=== PATIENT | male | born 1985 | race Caucasian/White ===

== ENCOUNTER 2020-01-07 23:40 | Emergency (ER) | payer OTHER ==
[2020-01-08] MEDS ORDERED: TRANEXAMIC ACID 1,000 MG in SODIUM CHLORIDE 0.9% 100 ML IVPB ONE (00:12)
[2020-01-08] MEDS ORDERED: PHENYLEPHRINE 0.25% NASAL SPRA 1 SPRAY/ML NASAL STA (00:16)
[2020-01-08] MEDS ORDERED: LIDOCAINE 1%-EPI 1:100,000 20 ML VIAL SQ STA (00:16)
[2020-01-08] MEDS ORDERED: OXYMETAZOLINE 0.05% NASL SPRAY 1 SPRAY BOTTLE NASAL STA (00:16)
[2020-01-08 00:30] LABS: Basophils # (A) 0.1 k/uL (0-0.2); Basophils % (A) 1 %; Eosinophils # (A) 0.2 k/uL (0-0.7); Eosinophils % (A) 3 %; HCT 44.4 % (39.0-53.0); HGB 15.5 gm/dL (13.0-17.5); Lymphocytes # (A) 2.2 k/uL (1.0-4.8); Lymphocytes % (A) 30 %; MCH 30.5 pg (25.0-35.0); MCHC 34.8 g/dL (31.0-37.0); MCV 87.6 fL (80.0-100.0); Mean Platelet Volume 7.3; Monocytes # (A) 0.3 k/uL (0-1.0); Monocytes % (A) 5 %; Neutrophils # (A) 4.4 k/uL (1.3-7.7); Neutrophils % (A) 59 %; Platelet Count 334 k/uL (150-450); RBC 5.07 m/uL (4.30-5.90); RDW 12.7 % (11.5-15.5); WBC 7.4 k/uL (3.8-10.6)
[2020-01-08 00:39] LABS: ALT 28 U/L (4-49); AST 31 U/L (17-59); African American GFR (CKD) >90 (>60 ml/min/1.73 sqM); Albumin 4.7 g/dL (3.5-5.0); Alkaline Phosphatase 76 U/L (38-126); Anion Gap 9 mmol/L; Blood Urea Nitrogen 19 mg/dL (9-20); Calcium 9.3 mg/dL (8.4-10.2); Carbon Dioxide 24 mmol/L (22-30); Chloride 107 mmol/L (98-107); Glucose 101 mg/dL (74-99); Non-African American GFR(CKD) >90 (>60 ml/min/1.73 sqM); Partial Thromboplastin Time 25.6 sec (22.0-30.0); Potassium 4.5 mmol/L (3.5-5.1); Sodium 140 mmol/L (137-145); Total Bilirubin 0.6 mg/dL (0.2-1.3); Total Protein 7.1 g/dL (6.3-8.2)
--- NOTE | 2020-01-08 01:20 | ED ---
General Adult HPI - General Chief complaint: ENT Stated complaint: Nose Bleed Time Seen by Provider: 01/07/20 23:45 Source: patient, RN notes reviewed, old records reviewed Mode of arrival: ambulatory Limitations: no limitations - History of Present Illness Initial comments: 34-year-old male patient who has a history of a septoplasty about 6 weeks ago presents to ED for chief complaint of epistaxis. Patient reports that he blew his nose today and started bleeding. He reports the most the bleeding was from the right side where he has had had some bleeding from the left. Denies any other acute complaints. Systemic: Pt denies fatigue, fever/chills, rash. Pt denies weakness, night sweats, weight loss. Neuro: Pt denies headache, visual disturbances, syncope or pre-syncope. HEENT: Pt denies ocular discharge or irritation, otalgia, rhinorrhea, pharyngitis or notable lymphadenopathy. Cardiopulmonary: Pt denies chest pain, SOB, heart palpitations, dyspnea on exertion. Abdominal/GI: Pt denies abdominal pain, n/v/d. : Pt denies dysuria, burning w/ urination, frequency/urgency. Denies new onset urinary or bowel incontinence. MSK: Pt denies myalgia, loss of strength or function in extremities. Neuro: Pt denies new onset weakness, paresthesias. - Related Data Allergies Allergy/AdvReac Type Severity Reaction Status Date / Time No Known Allergies Allergy Verified 01/07/20 23:51 Review of Systems ROS Statement: Those systems with pertinent positive or pertinent negative responses have been documented in the HPI. ROS Other: All systems not noted in ROS Statement are negative. Past Medical History Past Medical History: No Reported History History of Any Multi-Drug Resistant Organisms: None Reported Additional Past Surgical History / Comment(s): septoplasty. Past Psychological History: No Psychological Hx Reported Smoking Status: Never smoker Past Alcohol Use History: None Reported Past Drug Use History: None Reported General Exam - General Exam Comments Initial Comments: Constitutional: NAD, AOX3, Pt has pleasant affect. HEENT: NC/AT, trachea midline, neck supple, no lymphadenopathy. External ears appear normal, without discharge. Mucous membranes moist. Eyes PERRLA, EOM intact. There is no scleral icterus. No pallor noted. Dried blood noted in bilateral nares. Cardiopulmonary: RRR, no murmurs, rubs or gallops, no JVD noted. Lungs CTAB in anterior and posterior arceo. No peripheral edema. Neuro: CN II-XII grossly intact. No nuchal rigidity. No raccon eyes, no fernández sign, no hemotympanum. No cervical spinal tenderness. MSK: Full active ROM in upper and lower extremities. Limitations: no limitations Course Vital Signs 01/07/20 01/08/20 01/08/20 23:45 01:00 02:12 Temperature 98 F 97.9 F Pulse Rate 91 75 86 Respiratory 18 16 18 Rate Blood Pressure 159/100 137/74 125/73 O2 Sat by Pulse 96 95 96 Oximetry Medical Decision Making - Medical Decision Making 34-year-old male patient presented to ED for evaluation of epistaxis. Patient did have a nasal surgery about 6 weeks ago. Denies any other complaints. Vital signs stable. Laboratory investigations were obtained. Hemoglobin stable at 15. A was administered he aches a bleeding stopped spontaneously. I did offer patient packing however he is wants to decline this did not damaged his nose after the surgery.. Patient to follow-up with his surgeon tomorrow and return to ER if condition worsens. Case discussed with Dr. Velásquez. - Lab Data Result diagrams: 01/08/20 00:20 01/08/20 00:20 Lab Results 01/08/20 01/08/20 01/08/20 Range/Units 00:12 00:17 00:20 WBC 7.4 (3.8-10.6) k/uL RBC 5.07 (4.30-5.90) m/uL Hgb 15.5 (13.0-17.5) gm/dL Hct 44.4 (39.0-53.0) % MCV 87.6 (80.0-100.0) fL MCH 30.5 (25.0-35.0) pg MCHC 34.8 (31.0-37.0) g/dL RDW 12.7 (11.5-15.5) % Plt Count 334 (150-450) k/uL Neutrophils % 59 % Lymphocytes % 30 % Monocytes % 5 % Eosinophils % 3 % Basophils % 1 % Neutrophils # 4.4 (1.3-7.7) k/uL Lymphocytes # 2.2 (1.0-4.8) k/uL Monocytes # 0.3 (0-1.0) k/uL Eosinophils # 0.2 (0-0.7) k/uL Basophils # 0.1 (0-0.2) k/uL PT (9.0-12.0) sec INR (<1.2) APTT (22.0-30.0) sec Sodium (137-145) mmol/L Potassium (3.5-5.1) mmol/L Chloride (98-107) mmol/L Carbon Dioxide (22-30) mmol/L Anion Gap mmol/L BUN (9-20) mg/dL Creatinine (0.66-1.25) mg/dL Est GFR (CKD-EPI)AfAm (>60 ml/min/1.73 sqM) Est GFR (CKD-EPI)NonAf (>60 ml/min/1.73 sqM) Glucose (74-99) mg/dL Calcium (8.4-10.2) mg/dL Total Bilirubin (0.2-1.3) mg/dL AST (17-59) U/L ALT (4-49) U/L Alkaline Phosphatase (38-126) U/L Total Protein (6.3-8.2) g/dL Albumin (3.5-5.0) g/dL Blood Type O Positive Blood Type Confirm O Positive Blood Type Recheck No Previous Record Bld Type Recheck Status CABO Indicated Antibody Screen NEGATIVE Spec Expiration Date 01/11/2020 - 231101/08/20 01/08/20 Range/Units 00:20 00:20 WBC (3.8-10.6) k/uL RBC (4.30-5.90) m/uL Hgb (13.0-17.5) gm/dL Hct (39.0-53.0) % MCV (80.0-100.0) fL MCH (25.0-35.0) pg MCHC (31.0-37.0) g/dL RDW (11.5-15.5) % Plt Count (150-450) k/uL Neutrophils % % Lymphocytes % % Monocytes % % Eosinophils % % Basophils % % Neutrophils # (1.3-7.7) k/uL Lymphocytes # (1.0-4.8) k/uL Monocytes # (0-1.0) k/uL Eosinophils # (0-0.7) k/uL Basophils # (0-0.2) k/uL PT 10.0 (9.0-12.0) sec INR 1.0 (<1.2) APTT 25.6 (22.0-30.0) sec Sodium 140 (137-145) mmol/L Potassium 4.5 (3.5-5.1) mmol/L Chloride 107 (98-107) mmol/L Carbon Dioxide 24 (22-30) mmol/L Anion Gap 9 mmol/L BUN 19 (9-20) mg/dL Creatinine 0.99 (0.66-1.25) mg/dL Est GFR (CKD-EPI)AfAm >90 (>60 ml/min/1.73 sqM) Est GFR (CKD-EPI)NonAf >90 (>60 ml/min/1.73 sqM) Glucose 101 H (74-99) mg/dL Calcium 9.3 (8.4-10.2) mg/dL Total Bilirubin 0.6 (0.2-1.3) mg/dL AST 31 (17-59) U/L ALT 28 (4-49) U/L Alkaline Phosphatase 76 (38-126) U/L Total Protein 7.1 (6.3-8.2) g/dL Albumin 4.7 (3.5-5.0) g/dL Blood Type Blood Type Confirm Blood Type Recheck Bld Type Recheck Status Antibody Screen Spec Expiration Date Disposition Clinical Impression: Epistaxis Disposition: HOME SELF-CARE Condition: Stable Instructions (If sedation given, give patient instructions): Nosebleed (ED) Additional Instructions: Follow-up with primary care provider and surgeon tomorrow. Return to ER if any worsening symptoms. Is patient prescribed a controlled substance at d/c from ED?: No Referrals: None,Stated [Primary Care Provider] - 1-2 days Brayden White [STAFF PHYSICIAN] - 1-2 days
[2020-01-08 02:19] VITALS: BP 125/73; PULSE 86; RESP 18; TEMP 97.9
== END 2020-01-08 02:23 | disposition home or self-care (01) ==
LOC: EC 23:40
DX: R04.0 Epistaxis (principal); Z53.29 Procedure and treatment not carried out because of patient's decision for other reasons
CPT/HCPCS: 36415; 80053; 85025; 85610; 85730; 86850; 86900; 86901; 96365; 99284

== ENCOUNTER 2020-04-28 16:13 | Emergency (ER) | payer OTHER ==
[2020-04-28 16:25] VITALS: RESP 18; TEMP 98.5
[2020-04-28] MEDS ORDERED: KETOROLAC 15 MG/ML 1 ML VIAL IVP STA (16:39)
[2020-04-28] MEDS ORDERED: PANTOPRAZOLE 40 MG/10 ML VIAL IVP STA (16:39)
[2020-04-28] MEDS ORDERED: SODIUM CHLORIDE 0.9% 1,000 ML IV STA (16:39)
[2020-04-28] MEDS ORDERED: ONDANSETRON 4 MG/2 ML VIAL IVP STA (16:39)
--- NOTE | 2020-04-28 16:59 | ED ---
Abdominal Pain HPI - General Chief Complaint: Abdominal Pain Stated Complaint: Abd Pain Time Seen by Provider: 04/28/20 16:27 Source: patient Mode of arrival: ambulatory Limitations: no limitations - History of Present Illness Initial Comments: Patient is a 34-year-old male presenting to the emergency Department with complaints of abdominal pain times one day. Patient states for the last few days he has been having a nausea/burning sensation of his epigastric area with very mild radiation up into his lower chest. He states he has been nauseous, no vomiting though, no diarrhea. Patient states starting today he started having pain in his epigastric area and did notice a slight bulge and was worried he had a hernia and decided to come into the ER. He denies history of any abdominal surgeries. He states he's had no fever or chills, no diarrhea. He states his bowel movements have been regular. He denies any urinary complaints. He states his pain at rest is approximately 4/10 however when he moves around or when some he presses on his stomach that shoots up to a 7 out of 10. Patient denies taking any medications. Patient has no further complaints at this time. Upon arrival to the ER his vital signs are stable. - Related Data Allergies Allergy/AdvReac Type Severity Reaction Status Date / Time No Known Allergies Allergy Verified 04/28/20 16:24 Review of Systems ROS Statement: Those systems with pertinent positive or pertinent negative responses have been documented in the HPI. ROS Other: All systems not noted in ROS Statement are negative. Past Medical History Past Medical History: No Reported History History of Any Multi-Drug Resistant Organisms: None Reported Past Surgical History: No Surgical Hx Reported Additional Past Surgical History / Comment(s): septoplasty. Past Psychological History: No Psychological Hx Reported Smoking Status: Never smoker Past Alcohol Use History: None Reported Past Drug Use History: None Reported General Exam - General Exam Comments Initial Comments: GENERAL: Patient is well-developed and well-nourished. Patient is nontoxic and in no acute distress. HEAD: Atraumatic, normocephalic. EYES: Pupils equal round and reactive to light, extraocular movements intact, sclera anicteric, conjunctiva are normal. Eyelids were unremarkable. ENT: TMs normal, nares patent, oropharynx clear without exudates. Moist mucous membranes. NECK: Normal range of motion, supple without lymphadenopathy or JVD. LUNGS: Unlabored respirations. Breath sounds clear to auscultation bilaterally and equal. No wheezes rales or rhonchi. HEART: Regular rate and rhythm without murmurs, rubs or gallops. ABDOMEN: Tender to palpation epigastric, right upper quadrant. Patient has a slight buldge just left of the epigastric region. This buldge does seem to be tender, it is soft. Soft, normoactive bowel sounds. No guarding, no rebound. No masses appreciated. : Deferred MUSCULOSKELETAL: Normal extremities with adequate strength and normal range of motion, no pitting or edema. No clubbing or cyanosis. NEUROLOGICAL: Patient is alert and oriented x 3. Motor and sensory are also intact. Cranial nerves II through XII grossly intact. Symmetrical smile. Normal speech, normal gait. PSYCH: Normal mood, normal affect. SKIN: Warm, Dry, normal turgor, no rashes or lesions noted. Limitations: no limitations Course Vital Signs 04/28/20 04/28/20 16:21 17:58 Temperature 98.5 F Pulse Rate 88 76 Respiratory 18 18 Rate Blood Pressure 150/75 118/76 O2 Sat by Pulse 97 100 Oximetry Medical Decision Making - Medical Decision Making Patient is a 34-year-old male here for epigastric pain times one day along with nausea for the past 3 days. His vitals are stable he is afebrile. He does have pain epigastric and right upper quadrant along with a soft buldge just just left of the epigastric area. Labs show normal white count, coags are normal, lipase is normal, no acute findings and the labs, urine shows no evidence of infection. CT of the abdomen and pelvis is normal except for a small epigastric ventral hernia containing a small amount of fat. Patient was given some fluids and Toradol and has been resting completely ER. I discussed these findings with the patient. Patient will be given referral to a surgeon. Patient is stable for discharge. Return parameters were discussed with the patient and he verbalized understanding. Case discussed with Dr. Calhoun. - Lab Data Result diagrams: 04/28/20 16:48 04/28/20 16:48 Lab Results 04/28/20 04/28/20 04/28/20 Range/Units 16:48 16:48 16:48 WBC 7.4 (3.8-10.6) k/uL RBC 5.59 (4.30-5.90) m/uL Hgb 16.8 (13.0-17.5) gm/dL Hct 48.4 (39.0-53.0) % MCV 86.6 (80.0-100.0) fL MCH 30.0 (25.0-35.0) pg MCHC 34.7 (31.0-37.0) g/dL RDW 12.8 (11.5-15.5) % Plt Count 287 (150-450) k/uL MPV 7.2 Neutrophils % 66 % Lymphocytes % 24 % Monocytes % 4 % Eosinophils % 2 % Basophils % 2 % Neutrophils # 4.8 (1.3-7.7) k/uL Lymphocytes # 1.8 (1.0-4.8) k/uL Monocytes # 0.3 (0-1.0) k/uL Eosinophils # 0.2 (0-0.7) k/uL Basophils # 0.1 (0-0.2) k/uL PT 10.2 (9.0-12.0) sec INR 1.0 (<1.2) APTT 25.3 (22.0-30.0) sec Sodium (137-145) mmol/L Potassium (3.5-5.1) mmol/L Chloride (98-107) mmol/L Carbon Dioxide (22-30) mmol/L Anion Gap mmol/L BUN (9-20) mg/dL Creatinine (0.66-1.25) mg/dL Est GFR (CKD-EPI)AfAm (>60 ml/min/1.73 sqM) Est GFR (CKD-EPI)NonAf (>60 ml/min/1.73 sqM) Glucose (74-99) mg/dL Plasma Lactic Acid [place] (0.7-2.0) mmol/L Calcium (8.4-10.2) mg/dL Total Bilirubin (0.2-1.3) mg/dL AST (17-59) U/L ALT (4-49) U/L Alkaline Phosphatase (38-126) U/L Total Protein (6.3-8.2) g/dL Albumin (3.5-5.0) g/dL Amylase (30-110) U/L Lipase (23-300) U/L Urine Color Yellow Urine Appearance Clear (Clear) Urine pH 6.5 (5.0-8.0) Ur Specific [place] 1.018 (1.001-1.035) Urine Protein Negative (Negative) Urine Glucose (UA) Negative (Negative) Urine Ketones Negative (Negative) Urine Blood Negative (Negative) Urine Nitrite Negative (Negative) Urine Bilirubin Negative (Negative) Urine Urobilinogen <2.0 (<2.0) mg/dL Ur Leukocyte Esterase Negative (Negative) 04/28/20 04/28/20 Range/Units 16:48 16:48 WBC (3.8-10.6) k/uL RBC (4.30-5.90) m/uL Hgb (13.0-17.5) gm/dL Hct (39.0-53.0) % MCV (80.0-100.0) fL MCH (25.0-35.0) pg MCHC (31.0-37.0) g/dL RDW (11.5-15.5) % Plt Count (150-450) k/uL MPV Neutrophils % % Lymphocytes % % Monocytes % % Eosinophils % % Basophils % % Neutrophils # (1.3-7.7) k/uL Lymphocytes # (1.0-4.8) k/uL Monocytes # (0-1.0) k/uL Eosinophils # (0-0.7) k/uL Basophils # (0-0.2) k/uL PT (9.0-12.0) sec INR (<1.2) APTT (22.0-30.0) sec Sodium 138 (137-145) mmol/L Potassium 4.0 (3.5-5.1) mmol/L Chloride 104 (98-107) mmol/L Carbon Dioxide 30 (22-30) mmol/L Anion Gap 4 mmol/L BUN 14 (9-20) mg/dL Creatinine 0.89 (0.66-1.25) mg/dL Est GFR (CKD-EPI)AfAm >90 (>60 ml/min/1.73 sqM) Est GFR (CKD-EPI)NonAf >90 (>60 ml/min/1.73 sqM) Glucose 102 H (74-99) mg/dL Plasma Lactic Acid [place] 1.1 (0.7-2.0) mmol/L Calcium 9.2 (8.4-10.2) mg/dL Total Bilirubin 0.8 (0.2-1.3) mg/dL AST 38 (17-59) U/L ALT 40 (4-49) U/L Alkaline Phosphatase 60 (38-126) U/L Total Protein 6.7 (6.3-8.2) g/dL Albumin 4.2 (3.5-5.0) g/dL Amylase 50 (30-110) U/L Lipase 76 (23-300) U/L Urine Color Urine Appearance (Clear) Urine pH (5.0-8.0) Ur Specific [place] (1.001-1.035) Urine Protein (Negative) Urine Glucose (UA) (Negative) Urine Ketones (Negative) Urine Blood (Negative) Urine Nitrite (Negative) Urine Bilirubin (Negative) Urine Urobilinogen (<2.0) mg/dL Ur Leukocyte Esterase (Negative) Disposition Clinical Impression: Abdominal pain, Hernia, epigastric Disposition: HOME SELF-CARE Condition: Stable Instructions (If sedation given, give patient instructions): Abdominal Pain (ED) Additional Instructions: Please return to the Emergency Department if symptoms worsen or any other concerns. Lab work today was normal, CT scan of your abdomen shows a small ventral hernia. Recommend following up with general surgery. May take Tylenol or Motrin for discomfort, apply pressure to the area while having a bowel movement, limit heavy lifting. Is patient prescribed a controlled substance at d/c from ED?: No Referrals: None,Stated [Primary Care Provider] - 1-2 days Amado Cowan MD [STAFF PHYSICIAN] - 1-2 days
[2020-04-28 17:06] LABS: Basophils # (A) 0.1 k/uL (0-0.2); Basophils % (A) 2 %; Eosinophils # (A) 0.2 k/uL (0-0.7); Eosinophils % (A) 2 %; HCT 48.4 % (39.0-53.0); HGB 16.8 gm/dL (13.0-17.5); Lymphocytes # (A) 1.8 k/uL (1.0-4.8); Lymphocytes % (A) 24 %; MCHC 34.7 g/dL (31.0-37.0); MCV 86.6 fL (80.0-100.0); Mean Platelet Volume 7.2; Monocytes # (A) 0.3 k/uL (0-1.0); Monocytes % (A) 4 %; Neutrophils # (A) 4.8 k/uL (1.3-7.7); Neutrophils % (A) 66 %; Platelet Count 287 k/uL (150-450); RBC 5.59 m/uL (4.30-5.90); RDW 12.8 % (11.5-15.5); WBC 7.4 k/uL (3.8-10.6)
[2020-04-28 17:08] LABS: Appearance,Urine Clear (Clear); Bilirubin,Urine Negative (Negative); Blood,Urine Negative (Negative); Color,Urine Yellow; Glucose,Urine (UA) Negative (Negative); Ketones,Urine Negative (Negative); Leukocyte Esterase,Urine Negative (Negative); Nitrite,Urine Negative (Negative); PH, Urine 6.5 (5.0-8.0); Protein,Urine Negative (Negative); Specific Gravity,Urine 1.018 (1.001-1.035); Urobilinogen,Urine <2.0 mg/dL (<2.0)
[2020-04-28 17:21] LABS: ALT 40 U/L (4-49); AST 38 U/L (17-59); African American GFR (CKD) >90 (>60 ml/min/1.73 sqM); Albumin 4.2 g/dL (3.5-5.0); Alkaline Phosphatase 60 U/L (38-126); Amylase 50 U/L (30-110); Anion Gap 4 mmol/L; Blood Urea Nitrogen 14 mg/dL (9-20); Calcium 9.2 mg/dL (8.4-10.2); Carbon Dioxide 30 mmol/L (22-30); Chloride 104 mmol/L (98-107); Glucose 102 mg/dL (74-99); Lipase 76 U/L (23-300); Non-African American GFR(CKD) >90 (>60 ml/min/1.73 sqM); Partial Thromboplastin Time 25.3 sec (22.0-30.0); Prothrombin Time 10.2 sec (9.0-12.0); Sodium 138 mmol/L (137-145); Total Bilirubin 0.8 mg/dL (0.2-1.3); Total Protein 6.7 g/dL (6.3-8.2)
--- NOTE | 2020-04-28 17:48 | CT ---
EXAMINATION TYPE: CT abdomen pelvis w con DATE OF EXAM: 04/28/2020 COMPARISON: None HISTORY: Epigastric abdominal pain and nausea. CT DLP: 1507.8 mGycm Automated exposure control for dose reduction was used. CONTRAST: Performed with IV Contrast, patient injected with 100ml mL of Isovue 300. Lung bases are clear. There is no pleural effusion. Heart is normal. Liver spleen pancreas stomach gallbladder appear intact. Bile ducts are nondilated. There is small hiatal hernia. There is no adrenal mass. Kidneys show satisfactory contrast opacification. There is no hydronephrosi s. Appendix is posterior and appears normal. Bladder distends smoothly. There is no inguinal hernia. There is no free fluid in the pelvis. There is no evidence of pelvic mass. Ureters are not dilated. D elayed images show normal renal excretion. There is no mesenteric edema. There is no ascites or free air. There is no sign of a bowel obstructio n. Lumbar vertebra have normal alignment. Disc spaces are fairly normal. There is no compression fractur e. Bony pelvis is intact. There is very small epigastric ventral hernia contains some omental fat. Hernia is approximately 1.7 cm. IMPRESSION: No significant abnormality within the abdomen pelvis. Epigastric ventral hernia containing small amount of fat.
[2020-04-28 18:01] VITALS: BP 118/76; PULSE 76
== END 2020-04-28 18:07 | disposition home or self-care (01) ==
LOC: EC 16:13
DX: K43.9 Ventral hernia without obstruction or gangrene (principal)
CPT/HCPCS: 36415; 80053; 82150; 83605; 83690; 85025; 85610; 85730; 81003; 74177; 99284; 96374; 96375 ×2; 96361; J2405; J1885; C9113; Q9967

== ENCOUNTER 2020-09-17 11:41 | Emergency (ER) | payer OTHER ==
[2020-09-17] MEDS ORDERED: LEVOFLOXACIN 750 MG TAB PO STA (11:59)
--- NOTE | 2020-09-17 12:30 | XR ---
EXAMINATION TYPE: XR foot complete 3 views LT DATE OF EXAM: 09/17/2020 Comparison: None Clinical History: 35 year-old male with pain, Nail puncture injury through forefoot Findings: Bipartite tibial sesamoid. There is some soft tissue swelling along the plantar forefoot and midfoot region. No retained radiopaque foreign body seen. No soft tissue air. No acute fracture, subluxation, or dislocation. Impression: Soft tissue swelling along the plantar mid to forefoot. No retained radiopaque foreign body. No acute osseous abnormality seen.
--- NOTE | 2020-09-17 12:39 | ED ---
General Adult HPI - General Chief complaint: Skin/Abscess/Foreign Body Stated complaint: stepped on nail, lt foot Time Seen by Provider: 09/17/20 11:52 Source: patient Mode of arrival: wheelchair Limitations: no limitations - History of Present Illness Initial comments: 35 year-old male patient presents to the emergency department for evaluation of left foot injury. States that yesterday he stepped on a nail and it went through his shoe. He states that the nail was tenting the skin on the top of the foot. When he lifted his foot the nail came out. Patient states he is having some pain and is worried about worse injury. He denies any fever or chills. Denies drainage from the wound. - Related Data Previous Rx's Medication Instructions Recorded Levofloxacin [Levaquin] 750 mg PO DAILY #7 tab 09/17/20 Allergies Allergy/AdvReac Type Severity Reaction Status Date / Time No Known Allergies Allergy Verified 09/17/20 12:36 Review of Systems ROS Statement: Those systems with pertinent positive or pertinent negative responses have been documented in the HPI. ROS Other: All systems not noted in ROS Statement are negative. Past Medical History Past Medical History: Seizure Disorder History of Any Multi-Drug Resistant Organisms: None Reported Past Surgical History: No Surgical Hx Reported Additional Past Surgical History / Comment(s): septoplasty. Past Psychological History: No Psychological Hx Reported Smoking Status: Never smoker Past Alcohol Use History: None Reported Past Drug Use History: None Reported General Exam Limitations: no limitations General appearance: alert, in no apparent distress, other (This is a well- developed, well-nourished adult male patient in no acute distress. Vital signs upon presentation are temperature 97.6F, pulse 85, respirations 20, blood pressure 100/64, pulse ox 100% on room air.) Eye exam: Present: normal appearance, PERRL, EOMI. Absent: scleral icterus, conjunctival injection, periorbital swelling ENT exam: Present: normal exam, normal oropharynx, mucous membranes moist Respiratory exam: Present: normal lung sounds bilaterally. Absent: respiratory distress, wheezes, rales, rhonchi, stridor Cardiovascular Exam: Present: regular rate, normal rhythm, normal heart sounds. Absent: systolic murmur, diastolic murmur, rubs, gallop, clicks Extremities exam: Present: full ROM, tenderness (Over the plantar surface of the forefoot and the dorsal surface of the forefoot.), normal capillary refill, other (There is soft tissue swelling, erythema noted to the dorsal surface of the left forefoot. There is tiny puncture noted to the plantar surface of the forefoot. Skin is otherwise pink, warm, dry. Cap refill less than 3 seconds. Pedal and posttibial pulses 2+ and equal bilaterally.). Absent: normal inspection, pedal edema, joint swelling, calf tenderness Neurological exam: Present: alert, oriented X3, CN II-XII intact Psychiatric exam: Present: normal affect, normal mood Skin exam: Present: warm, dry, intact, normal color. Absent: rash Course Vital Signs 09/17/20 09/17/20 11:44 13:27 Temperature 97.6 F 98.2 F Pulse Rate 85 80 Respiratory 20 19 Rate Blood Pressure 100/64 112/68 O2 Sat by Pulse 100 98 Oximetry Medical Decision Making - Medical Decision Making 35-year-old male patient presents to the emergency department today for evaluation of left foot pain after stepping on a nail yesterday. Physical examination did reveal erythema soft tissue swelling over the dorsal surface of the left forefoot. There was tiny puncture noted to the plantar surface. X-ray was obtained and showed no evidence for foreign body or osseous abnormality. Patient was started on Levaquin. We discharged instructions to apply ice and to follow-up with the primary care physician for recheck in 1-2 days. Return parameters were discussed in detail. He verbalizes understanding and agrees with this plan. Case discussed with my attending Dr. Evangelista. - Radiology Data Radiology results: report reviewed, image reviewed 3 views of the left foot are obtained. Report was reviewed in its entirety. Impression by Dr. Morales shows soft tissue swelling along the plantar mid to forefoot. No retained radiopaque foreign body. No acute osseous abnormalities seen. Disposition Clinical Impression: Puncture wound of left foot Disposition: HOME SELF-CARE Condition: Good Instructions (If sedation given, give patient instructions): Puncture Wound (ED) Additional Instructions: Keep foot clean and dry. Complete antibiotic prescription and full. Follow-up with the primary care physician for recheck in 1-2 days. Return for any new, worsening, or concerning symptoms. Prescriptions: Levofloxacin [Levaquin] 750 mg PO DAILY #7 tab Is patient prescribed a controlled substance at d/c from ED?: No Referrals: None,Stated [Primary Care Provider] - 1-2 days Time of Disposition: 13:01
[2020-09-17 13:28] VITALS: BP 112/68; PULSE 80; RESP 19; TEMP 98.2
== END 2020-09-17 13:27 | disposition home or self-care (01) ==
LOC: EC 11:41
DX: S91.332A Puncture wound without foreign body, left foot, initial encounter (principal); G40.909 Epilepsy, unspecified, not intractable, without status epilepticus; W45.0XXA Nail entering through skin, initial encounter
CPT/HCPCS: 99283

== ENCOUNTER 2020-09-22 16:45 | Emergency (ER) | payer OTHER ==
[2020-09-22 16:53] VITALS: TEMP 98.5
--- NOTE | 2020-09-22 17:25 | ED ---
URI HPI - General Chief Complaint: Upper Respiratory Infection Stated Complaint: headache/SOB Time Seen by Provider: 09/22/20 16:57 Source: patient Mode of arrival: ambulatory Limitations: no limitations - History of Present Illness Initial Comments: Frank is a 35-year-old male who presents the ER today for evaluation of cough and headache with concern for COVID-19. The patient's tested positive for COVID-19 yesterday. His son has had symptoms for 5 days patient woke up with symptoms today. Patient denies any chest pain or shortness of breath. Reports mild nonproductive cough, malaise, myalgias and headache. - Related Data Previous Rx's Medication Instructions Recorded Levofloxacin [Levaquin] 750 mg PO DAILY #7 tab 09/17/20 Allergies Allergy/AdvReac Type Severity Reaction Status Date / Time No Known Allergies Allergy Verified 09/22/20 16:51 Review of Systems ROS Statement: Those systems with pertinent positive or pertinent negative responses have been documented in the HPI. ROS Other: All systems not noted in ROS Statement are negative. Past Medical History Past Medical History: Seizure Disorder History of Any Multi-Drug Resistant Organisms: None Reported Past Surgical History: No Surgical Hx Reported Additional Past Surgical History / Comment(s): septoplasty. Past Psychological History: No Psychological Hx Reported Smoking Status: Never smoker Past Alcohol Use History: None Reported Past Drug Use History: None Reported General Exam - General Exam Comments Initial Comments: Physical Exam GENERAL: Patient is well-developed and well-nourished. Patient is nontoxic and well-hydrated and is in no distress. HENT: Normocephalic, Atraumatic. EYES: PERRL, EOMI PULMONARY: Unlabored respirations. CARDIOVASCULAR: RRR Warm and well perfused extremities ABDOMEN: Non-distended SKIN: No rashes or bruising : Deferred NEUROLOGIC: Alert and oriented Normal speech Normal gait MUSCULOSKELETAL: Moving all extremities with no apparent injury PSYCHIATRIC: No SI/HI Limitations: no limitations Course Vital Signs 09/22/20 16:51 Temperature 98.5 F Pulse Rate 94 Respiratory 16 Rate Blood Pressure 129/71 O2 Sat by Pulse 95 Oximetry Medical Decision Making - Medical Decision Making Patient was seen and evaluated history was obtained from patient COVID test was negative Results were discussed with the patient who is stable for discharge home - Lab Data Lab Results 09/22/20 Range/Units 17:07 Coronavirus (PCR) Not Detected (Not Detectd) Disposition Clinical Impression: Upper respiratory tract infection Disposition: HOME SELF-CARE Condition: Stable Instructions (If sedation given, give patient instructions): Upper Respiratory Infection (ED) Is patient prescribed a controlled substance at d/c from ED?: No Referrals: None,Stated [Primary Care Provider] - 1-2 days
[2020-09-22 18:27] VITALS: BP 132/76; PULSE 87; RESP 18
== END 2020-09-22 18:27 | disposition home or self-care (01) ==
LOC: EC 16:45
DX: J06.9 Acute upper respiratory infection, unspecified (principal); Z20.822 Contact with and (suspected) exposure to COVID-19
CPT/HCPCS: 87635; 99284

== ENCOUNTER 2021-02-05 21:22 | Emergency (ER) | payer OTHER ==
--- NOTE | 2021-02-05 21:46 | ED ---
Male Urogenital HPI - General Chief complaint: Urogenital Stated complaint: Testicular Pain Time Seen by Provider: 02/05/21 21:29 Source: patient Mode of arrival: ambulatory Limitations: no limitations - History of Present Illness Initial comments: This patient is a 35-year-old man who presents to be evaluated for right scrotal swelling and pain. Patient states his symptoms started number weeks ago when he noted he was having some intermittent right scrotal/testicular discomfort. He states that it was not constant. He did not notice any worsening or relieving factors. Pain was a little worse last night. He states that over that time he also has noticed that there has been a mild amount of swelling. He states it feels like additional fluid. Patient states that this also seemed to be more noticeable on starting last night. Patient denies any fever or chills, dysuria or drainage. No abdominal pain, nausea or vomiting. No change in bowel movements or urination. MD Complaint: testicle pain, testicle swelling -: week(s) Location: right testicle Radiation: none Severity: mild Quality: dull Consistency: intermittent Improves with: none Worsens with: none Reports: swelling - Related Data Sexually active: Yes Home Medications Medication Instructions Recorded Confirmed No Known Home Medications 02/05/21 02/05/21 Allergies Allergy/AdvReac Type Severity Reaction Status Date / Time No Known Allergies Allergy Verified 02/05/21 22:36 Review of Systems ROS Statement: Those systems with pertinent positive or pertinent negative responses have been documented in the HPI. ROS Other: All systems not noted in ROS Statement are negative. Constitutional: Denies: fever, chills Respiratory: Denies: cough, dyspnea Cardiovascular: Denies: chest pain, edema Gastrointestinal: Denies: abdominal pain, nausea, vomiting, diarrhea, constipation Genitourinary: Reports: as per HPI, testicular pain, testicular mass. Denies: urgency, dysuria, frequency, hematuria, discharge Musculoskeletal: Denies: back pain Skin: Denies: rash Neurological: Denies: headache Past Medical History Past Medical History: Seizure Disorder History of Any Multi-Drug Resistant Organisms: None Reported Past Surgical History: No Surgical Hx Reported Additional Past Surgical History / Comment(s): septoplasty. Past Psychological History: No Psychological Hx Reported Smoking Status: Never smoker Past Alcohol Use History: None Reported Past Drug Use History: None Reported General Exam Limitations: no limitations General appearance: alert, in no apparent distress Head exam: Present: atraumatic, normocephalic Eye exam: Present: normal appearance. Absent: scleral icterus, conjunctival injection Respiratory exam: Present: normal lung sounds bilaterally. Absent: respiratory distress, wheezes, rales, rhonchi, stridor Cardiovascular Exam: Present: regular rate, normal rhythm, normal heart sounds. Absent: systolic murmur, diastolic murmur, rubs, gallop GI/Abdominal exam: Present: soft. Absent: distended, tenderness, guarding, rebound, rigid, mass, pulsatile mass, hernia exam: Present: testicular tenderness (Mild right-sided tenderness), scrotal swelling (Mild right-sided swelling), vertical testicular lie, circumcision. Absent: urethral discharge Extremities exam: Present: normal inspection, normal capillary refill. Absent: pedal edema, calf tenderness Back exam: Present: normal inspection. Absent: CVA tenderness (R), CVA tenderness (L) Neurological exam: Present: alert Skin exam: Present: warm, dry, intact, normal color. Absent: rash Course Vital Signs 02/05/21 21:23 Temperature 98.7 F Pulse Rate 95 Respiratory 18 Rate Blood Pressure 138/79 O2 Sat by Pulse 96 Oximetry Medical Decision Making - Lab Data Lab Results 02/05/21 Range/Units 21:44 Urine Color Yellow Urine Appearance Clear (Clear) Urine pH 6.0 (5.0-8.0) Ur Specific [place] 1.020 (1.001-1.035) Urine Protein Negative (Negative) Urine Glucose (UA) Negative (Negative) Urine Ketones Negative (Negative) Urine Blood Negative (Negative) Urine Nitrite Negative (Negative) Urine Bilirubin Negative (Negative) Urine Urobilinogen <2.0 (<2.0) mg/dL Ur Leukocyte Esterase Negative (Negative) Disposition Clinical Impression: Hydrocele Disposition: HOME SELF-CARE Condition: Good Instructions (If sedation given, give patient instructions): Hydrocele (ED) Is patient prescribed a controlled substance at d/c from ED?: No Referrals: None,Stated [Primary Care Provider] - 1-2 days Ray Weiss MD [STAFF PHYSICIAN] - 1-2 days
[2021-02-05 22:00] LABS: Appearance,Urine Clear (Clear); Bilirubin,Urine Negative (Negative); Blood,Urine Negative (Negative); Color,Urine Yellow; Glucose,Urine (UA) Negative (Negative); Ketones,Urine Negative (Negative); Leukocyte Esterase,Urine Negative (Negative); Nitrite,Urine Negative (Negative); Protein,Urine Negative (Negative); Urobilinogen,Urine <2.0 mg/dL (<2.0)
--- NOTE | 2021-02-06 00:02 | US ---
EXAMINATION TYPE: US scrotum with doppler. Grayscale and color Doppler Duplex imaging performed of t silverio scrotum. DATE OF EXAM: 02/05/2021 COMPARISON: NONE CLINICAL HISTORY: r scrotal swelling. EXAM MEASUREMENTS: TESTICLES: Right Testicle: 4.3 x 3.1 x 2.8 cm Left Testicle: 4.4 x 2.3 x 2.8 cm EPIDIDYMIS HEAD: Right Epididymis: 1.9 cm Left Epididymis: 1.4 cm Doppler performed to assess for testicular vascularity; good bilateral color flow and waveforms are s een. There is no evidence of testicular torsion. Presence of hydroceles: Yes, large hydrocele right testicle measuring 7.3 x 3.1 x 5.3 cm. There is a scrotal damien 0.5 cm Presence of varicoceles: No Large hydrocele right testicle measuring 7.3 x 3.1 x 5.3 cm. There is a scrotal damien right side jonathan uring 0.5 cm. Epididymal cyst right testicle measuring 1.6 x 1.5 x 1.5 cm. Epididymal cyst left side measuring 1.1 x 1.1 x 1.1 cm IMPRESSION: Large right-sided hydrocele with calcification. Large right epididymal cyst. no testicular torsion or mass.
[2021-02-06 00:40] VITALS: BP 132/84; PULSE 80; RESP 20; TEMP 97.7
== END 2021-02-06 00:37 | disposition home or self-care (01) ==
LOC: EC 21:22
DX: N43.3 Hydrocele, unspecified (principal)
CPT/HCPCS: 76870; 81003; 93975; 99284

== ENCOUNTER 2021-02-14 19:21 | Emergency (ER) | payer OTHER ==
[2021-02-14] MEDS ORDERED: SODIUM CHLORIDE 0.9% 1,000 ML IV ONE (19:36)
[2021-02-14] MEDS ORDERED: LORazepam 2 MG/ML INJ IV STA (19:45)
[2021-02-14 19:54] LABS: Basophils # (A) 0.1 k/uL (0-0.2); Basophils % (A) 1 %; Eosinophils # (A) 0.1 k/uL (0-0.7); Eosinophils % (A) 1 %; Hyperchromasia Slight; Lymphocytes # (A) 1.8 k/uL (1.0-4.8); Lymphocytes % (A) 24 %; MCH 30.7 pg (25.0-35.0); MCHC 34.7 g/dL (31.0-37.0); MCV 88.4 fL (80.0-100.0); Mean Platelet Volume 7.6; Monocytes # (A) 0.4 k/uL (0-1.0); Monocytes % (A) 5 %; Neutrophils # (A) 5.2 k/uL (1.3-7.7); Neutrophils % (A) 67 %; Platelet Count 300 k/uL (150-450); RBC 5.54 m/uL (4.30-5.90); RDW 12.8 % (11.5-15.5); WBC 7.7 k/uL (3.8-10.6)
[2021-02-14 20:10] LABS: ALT 34 U/L (4-49); AST 39 U/L (17-59); African American GFR (CKD) >90 (>60 ml/min/1.73 sqM); Albumin 4.1 g/dL (3.5-5.0); Alkaline Phosphatase 72 U/L (38-126); Anion Gap 10 mmol/L; Blood Urea Nitrogen 18 mg/dL (9-20); Calcium 9.5 mg/dL (8.4-10.2); Carbon Dioxide 22 mmol/L (22-30); Chloride 107 mmol/L (98-107); Glucose 102 mg/dL (74-99); Non-African American GFR(CKD) >90 (>60 ml/min/1.73 sqM); Potassium 4.3 mmol/L (3.5-5.1); Sodium 139 mmol/L (137-145); Total Bilirubin 0.9 mg/dL (0.2-1.3); Total Protein 6.7 g/dL (6.3-8.2)
--- NOTE | 2021-02-14 20:17 | ED ---
SOB HPI - General Chief Complaint: Shortness of Breath Stated Complaint: SOB Time Seen by Provider: 02/14/21 19:22 Source: EMS Mode of arrival: EMS Limitations: no limitations - History of Present Illness Initial Comments: This 35-year-old male with a history of seizures who presents or urgency department for shortness of breath. The patient states he did donate plasma earlier today. He states he went home and did not eat anything. 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 Patient stated that he rested however symptoms did not resolve so he called in a bouncer brought to the emergency department. The patient states that he always feels somewhat short of breath at baseline however states that today he does feel worse. There is no cough. No fevers or chills. No nausea, vomiting, or diarrhea. No chest pain. The patient feels that this could be related to donating plasma earlier in the day. The patient does have a history of seizures which she states has been on diagnosed by physician. He states that he just has seizures at home and treat him on his own. He is not currently on medications. - Related Data Home Medications Medication Instructions Recorded Confirmed No Known Home Medications 02/05/21 02/05/21 Allergies Allergy/AdvReac Type Severity Reaction Status Date / Time No Known Allergies Allergy Verified 02/14/21 19:39 Review of Systems ROS Statement: Those systems with pertinent positive or pertinent negative responses have been documented in the HPI. ROS Other: All systems not noted in ROS Statement are negative. Past Medical History Past Medical History: Seizure Disorder History of Any Multi-Drug Resistant Organisms: None Reported Past Surgical History: No Surgical Hx Reported Additional Past Surgical History / Comment(s): septoplasty. Past Psychological History: No Psychological Hx Reported Smoking Status: Never smoker Past Alcohol Use History: Occasional Past Drug Use History: None Reported General Exam - General Exam Comments Initial Comments: Constitutional: Awake alert Appears comfortable Head: Normocephalic atraumatic Eyes: no conjunctival injection No scleral icterus EOMI Neck: No JVD Supple Heart: Regular rate rhythm normal S1-S2 no murmurs Lungs: Clear to auscultation bilaterally No wheezing No rales Abdomen: Soft nondistended nontender Extremities: Non edematous DP pulses intact Radial pulses intact Neuro: A&Ox3 No focal neurologic deficits Psych: Appropriate mood and affect Limitations: no limitations Course Vital Signs 02/14/21 02/14/21 19:34 21:02 Temperature 98.2 F Pulse Rate 110 H 95 Respiratory 20 18 Rate Blood Pressure 137/90 133/79 O2 Sat by Pulse 92 L 94 L Oximetry - Reevaluation(s) Reevaluation #1: 02/14/21 20:17 Was notified by the nurse that the patient has seizure. I went into the room the patient was laying on his side and answering questions. Did not appear to have a postictal. No tongue biting. I spoke with the nurse who stated that he was not postictal and was immediately responsive after his seizure Reevaluation #2: 02/14/21 21:13 EKG showing normal sinus rhythm with a rate of 99. No abnormal ST segment sumeet nges or T-wave inversions. QTC is 415. Other intervals normal. No ectopy. Medical Decision Making - Medical Decision Making This 35-year-old male who presents emergency department for shortness of breath. The patient had stable vital signs on arrival. Did not appear to be in acute distress. He did give plasma earlier today without. Patient was given IV fluids and had blood work performed which was unremarkable. Troponin was negative. D-dimer is negative. EKG was unremarkable area the patient did have a seizure which is common for him in the emergency department. CT of the head was unremarkable. Return to baseline very quickly. He was given Ativan as well. The patient currently feels back to baseline. I advised him that I would recommend he follow-up with a neurologist regarding his seizures that she does not see anybody currently. Told to make sure he is eating and drinking especially if his donating plasma. He can return emergency Department if he has any recurrent symptoms or any worsening or changing symptoms. All questions were answered. - Lab Data Result diagrams: 02/14/21 19:45 02/14/21 19:45 Lab Results 02/14/21 02/14/21 02/14/21 Range/Units 19:45 19:45 19:45 WBC 7.7 (3.8-10.6) k/uL RBC 5.54 (4.30-5.90) m/uL Hgb 17.0 (13.0-17.5) gm/dL Hct 49.0 (39.0-53.0) % MCV 88.4 (80.0-100.0) fL MCH 30.7 (25.0-35.0) pg MCHC 34.7 (31.0-37.0) g/dL RDW 12.8 (11.5-15.5) % Plt Count 300 (150-450) k/uL MPV 7.6 Neutrophils % 67 % Lymphocytes % 24 % Monocytes % 5 % Eosinophils % 1 % Basophils % 1 % Neutrophils # 5.2 (1.3-7.7) k/uL Lymphocytes # 1.8 (1.0-4.8) k/uL Monocytes # 0.4 (0-1.0) k/uL Eosinophils # 0.1 (0-0.7) k/uL Basophils # 0.1 (0-0.2) k/uL Hyperchromasia Slight D-Dimer <0.17 (<0.60) mg/L FEU Sodium 139 (137-145) mmol/L Potassium 4.3 (3.5-5.1) mmol/L Chloride 107 (98-107) mmol/L Carbon Dioxide 22 (22-30) mmol/L Anion Gap 10 mmol/L BUN 18 (9-20) mg/dL Creatinine 1.05 (0.66-1.25) mg/dL Est GFR (CKD-EPI)AfAm >90 (>60 ml/min/1.73 sqM) Est GFR (CKD-EPI)NonAf >90 (>60 ml/min/1.73 sqM) Glucose 102 H (74-99) mg/dL Calcium 9.5 (8.4-10.2) mg/dL Magnesium 2.0 (1.6-2.3) mg/dL Total Bilirubin 0.9 (0.2-1.3) mg/dL AST 39 (17-59) U/L ALT 34 (4-49) U/L Alkaline Phosphatase 72 (38-126) U/L Troponin I (0.000-0.034) ng/mL Total Protein 6.7 (6.3-8.2) g/dL Albumin 4.1 (3.5-5.0) g/dL 02/14/21 Range/Units 19:45 WBC (3.8-10.6) k/uL RBC (4.30-5.90) m/uL Hgb (13.0-17.5) gm/dL Hct (39.0-53.0) % MCV (80.0-100.0) fL MCH (25.0-35.0) pg MCHC (31.0-37.0) g/dL RDW (11.5-15.5) % Plt Count (150-450) k/uL MPV Neutrophils % % Lymphocytes % % Monocytes % % Eosinophils % % Basophils % % Neutrophils # (1.3-7.7) k/uL Lymphocytes # (1.0-4.8) k/uL Monocytes # (0-1.0) k/uL Eosinophils # (0-0.7) k/uL Basophils # (0-0.2) k/uL Hyperchromasia D-Dimer (<0.60) mg/L FEU Sodium (137-145) mmol/L Potassium (3.5-5.1) mmol/L Chloride (98-107) mmol/L Carbon Dioxide (22-30) mmol/L Anion Gap mmol/L BUN (9-20) mg/dL Creatinine (0.66-1.25) mg/dL Est GFR (CKD-EPI)AfAm (>60 ml/min/1.73 sqM) Est GFR (CKD-EPI)NonAf (>60 ml/min/1.73 sqM) Glucose (74-99) mg/dL Calcium (8.4-10.2) mg/dL Magnesium (1.6-2.3) mg/dL Total Bilirubin (0.2-1.3) mg/dL AST (17-59) U/L ALT (4-49) U/L Alkaline Phosphatase (38-126) U/L Troponin I <0.012 (0.000-0.034) ng/mL Total Protein (6.3-8.2) g/dL Albumin (3.5-5.0) g/dL Disposition Clinical Impression: Seizure, Dyspnea Disposition: HOME SELF-CARE Condition: Stable Instructions (If sedation given, give patient instructions): Recurrent Seizures in Adults (ED) Is patient prescribed a controlled substance at d/c from ED?: No Referrals: None,Stated [Primary Care Provider] - 1-2 days Norman Andrade MD [STAFF PHYSICIAN] - 1-2 days
--- NOTE | 2021-02-14 20:37 | CT ---
EXAMINATION TYPE: CT brain wo con DATE OF EXAM: 02/14/2021 COMPARISON: None HISTORY: SEIZURE CT DLP: 1180.4 mGycm Automated exposure control for dose reduction was used. Ventricles have normal size. There is no mass effect nor midline shift. There is no sign of intracran ial hemorrhage. Calvarium is intact. Skull base is intact. There is normal aeration of the mastoid si nuses. There is mucus retention cysts in both maxillary sinuses. IMPRESSION: Negative CT scan of the brain.
[2021-02-14 21:04] VITALS: RESP 18
--- NOTE | 2021-02-14 21:34 | XR ---
EXAMINATION TYPE: XR chest 2V DATE OF EXAM: 02/14/2021 COMPARISON: NONE HISTORY: Short of breath TECHNIQUE: 2 views FINDINGS: Heart and mediastinum are normal. Lungs are clear. Diaphragm is normal. Bony thorax appears normal. There are chest leads. IMPRESSION: Normal chest.
[2021-02-14 22:34] VITALS: BP 113/84; PULSE 86; TEMP 97.6
== END 2021-02-14 22:34 | disposition home or self-care (01) ==
LOC: EC 19:21
DX: R06.00 Dyspnea, unspecified (principal); G40.909 Epilepsy, unspecified, not intractable, without status epilepticus
CPT/HCPCS: 36415; 93005; 85379; 80053; 83735; 84484; 85025; 71046; 70450; 99285; 96374; 96361; J2060

== ENCOUNTER 2021-06-09 20:57 | Emergency (ER) | payer OTHER ==
[2021-06-09 21:35] VITALS: BP 125/74; PULSE 94; RESP 20; TEMP 99.2
[2021-06-09] MEDS ORDERED: ENOXAPARIN 40 MG/0.4 ML SYRINGE SQ SCH (23:45)
[2021-06-09] MEDS ORDERED: CASIRIVIMAB (REGN10933) (EUA) 600 MG, IMDEVIMAB (REGN10987) (EUA) 600 MG in SODIUM CHLO... IVPB ONE (23:45)
[2021-06-09] MEDS ORDERED: SODIUM CHLORIDE 0.9% 50 ML IVPB ONE (23:45)
[2021-06-09] MEDS ORDERED: BAMLANIVIMAB (EUA) 700 MG, ETESEVIMAB (EUA) 1,400 MG in SODIUM CHLORIDE 0.9% 100 ML IVPB ONE (23:45)
--- NOTE | 2021-06-10 00:49 | ED ---
URI HPI - General Chief Complaint: Upper Respiratory Infection Stated Complaint: STAR,Covid + Time Seen by Provider: 06/09/21 23:26 Source: patient, RN notes reviewed Mode of arrival: ambulatory Limitations: no limitations - History of Present Illness Initial Comments: This is a pleasant 35-year-old male who presents to the emergency department complaining of cough, mild shortness of breath, body aches, loss of taste and smell, and fever. Patient was seen here yesterday and diagnosed with COVID-19. He's been ill for 3 days. The patient refused infusion of the monoclonal antibody yesterday. Patient arrived via EMS today after he states his symptoms seem like they're getting worse. Patient requesting infusion at this time. no changes in vision or hearing, no sore throat or difficulty with speech, no neck pain, no chest pain, no abdominal pain, no nausea or vomiting, no changes in urination or bowel movements, no numbness or tingling, no extremity pain, no skin rashes or lesions. - Related Data Home Medications Medication Instructions Recorded Confirmed No Known Home Medications 02/05/21 02/05/21 Allergies Allergy/AdvReac Type Severity Reaction Status Date / Time No Known Allergies Allergy Verified 06/09/21 21:32 Review of Systems ROS Statement: Those systems with pertinent positive or pertinent negative responses have been documented in the HPI. ROS Other: All systems not noted in ROS Statement are negative. Past Medical History Past Medical History: Seizure Disorder History of Any Multi-Drug Resistant Organisms: None Reported Past Surgical History: No Surgical Hx Reported Additional Past Surgical History / Comment(s): septoplasty. Past Psychological History: No Psychological Hx Reported Smoking Status: Never smoker Past Alcohol Use History: Occasional Past Drug Use History: None Reported General Exam - General Exam Comments Initial Comments: Patient does not appear to be any significant distress. Vital signs are reviewed. Appears to be adequately hydrated. No tachypnea or increased work of breathing noted during physical exam. Limitations: no limitations General appearance: alert, in no apparent distress Head exam: Present: atraumatic, normocephalic, normal inspection Eye exam: Present: normal appearance, PERRL, EOMI. Absent: scleral icterus, conjunctival injection, periorbital swelling ENT exam: Present: normal exam, mucous membranes moist Neck exam: Present: normal inspection. Absent: tenderness, meningismus, lymphadenopathy Respiratory exam: Present: normal lung sounds bilaterally. Absent: respiratory distress, wheezes, rales, rhonchi, stridor Cardiovascular Exam: Present: regular rate, normal rhythm, normal heart sounds. Absent: systolic murmur, diastolic murmur, rubs, gallop, clicks GI/Abdominal exam: Present: soft, normal bowel sounds. Absent: distended, tenderness, guarding, rebound, rigid Extremities exam: Present: normal inspection, full ROM, normal capillary refill. Absent: tenderness, pedal edema, joint swelling, calf tenderness Back exam: Present: normal inspection Neurological exam: Present: alert, oriented X3, CN II-XII intact Psychiatric exam: Present: normal affect, normal mood Skin exam: Present: warm, dry, intact, normal color. Absent: rash Course Vital Signs 06/09/21 21:32 Temperature 99.2 F Pulse Rate 94 Respiratory 20 Rate Blood Pressure 125/74 O2 Sat by Pulse 95 Oximetry Medical Decision Making - Medical Decision Making Patient met criteria for monoclonal antibody for elevated BMI. Patient was given the infusion. Patient was counseled on COVID-19, quarantine measures, and treatment plan. Patient was nontoxic, recent stable condition. Patient voiced understanding of all findings and treatment plan. Follow-up with your regular physician as directed. Return to the ER immediately if any symptoms worsen, new symptoms arise, or any other problems develop. Disposition Clinical Impression: COVID-19 Disposition: HOME SELF-CARE Condition: Good Additional Instructions: SELF QUARANTINE DISCHARGE: As you are at risk for symptoms due to coronavirus, please stay home and stay away from others as much as possible. Please maintain social distance of 6 feet if possible. You should not return to work until at least 3 days (72 hours) have passed since recovery of symptoms. This defined as resolution of fever without the use of fever reducing medicines and improvement in respiratory symptoms (e.g,, cough, shortness of breath) and, At least 7 days have passed since symptoms first appeared. More information about what to do if you are sick can be found on the CDC website at https://www.cdc.gov/coronavirus/2019-ncov/yv-bjf-cqh-sick/xlzod-dyjd-enee.html Expect the symptoms to last for 7-14 days from onset. Use acetaminophen (Tylenol) as needed for discomfort. You can take a maximum of 1 gram every 6 hours for discomfort, with your total dose in 24 hours not exceeding 4 grams. Be sure to maintain hydration. Drink continuous water and/or items high in vitamin C, such as orange juice and/or lemonade. Unless you have high blood pressure, you may consider Sudafed (which is [id number]) for nasal congestion. I would suggest that a short acting Sudafed rather than the 24 hour Sudafed. For a cough you may take Mucinex or Robitussin. Also consider the use of Vicks Vapor Rub or your chest when you sleep. Use a humidifier that is cleaned frequently, in the bedroom at night. For Nausea /Vomiting/Diarrhea associated with your Illness: o Small frequent sips of room temperature liquids. o Diet: [employer] - If you are still experiencing discomfort and/or nausea please slowly advancing your diet using the BRAT Diet = bananas, rice, apples/apple sauce, toast. o With diarrhea avoid any dairy for 48 hours after symptoms resolved. o Continue with activity as tolerated. If your symptoms do get worse and you believe that the upper respiratory infection has developed into something else, such as pneumonia or severe dehydration, please return to the emergency department or follow-up with your primary care. But expect to be symptomatic for the days as indicated above Follow-up with your regular physician for reevaluation., Tylenol for fever control. Is patient prescribed a controlled substance at d/c from ED?: No Referrals: Boston Porras MD [STAFF PHYSICIAN] - 06/17/21 Time of Disposition: 00:48
[2021-06-10] MEDS ORDERED: DEXAMETHASONE SOD PHOSPHATE 10 MG/ML 1 ML VIAL IV SCH (09:00)
== END 2021-06-10 02:01 | disposition home or self-care (01) ==
LOC: EC 20:57
DX: U07.1 COVID-19 (principal)
CPT/HCPCS: 99284; Q0244

== ENCOUNTER 2021-06-19 09:50 | Emergency (ER) | payer OTHER ==
[2021-06-19 09:54] VITALS: BP 139/88; PULSE 66; RESP 18; TEMP 98.3
--- NOTE | 2021-06-19 09:58 | ED ---
General Adult HPI - General Chief complaint: Recheck/Abnormal Lab/Rx Stated complaint: Covid test Time Seen by Provider: 06/19/21 09:51 Source: patient, RN notes reviewed Mode of arrival: ambulatory Limitations: no limitations - History of Present Illness Initial comments: This a 35-year-old male presents emergency Department with chief complaint of needin testing. Patient states tested +11 days ago he states his work will not allow him to return to work until he has a negative COVID-19 test. Patient states he is a symptomatic. Denies fever chills cough congestion shortness of breath as a GI symptoms including nausea vomiting diarrhea constipation no other complaints social. - Related Data Home Medications Medication Instructions Recorded Confirmed No Known Home Medications 02/05/21 02/05/21 Allergies Allergy/AdvReac Type Severity Reaction Status Date / Time No Known Allergies Allergy Verified 06/19/21 09:51 Review of Systems ROS Statement: Those systems with pertinent positive or pertinent negative responses have been documented in the HPI. ROS Other: All systems not noted in ROS Statement are negative. Past Medical History Past Medical History: Seizure Disorder History of Any Multi-Drug Resistant Organisms: None Reported Past Surgical History: No Surgical Hx Reported Additional Past Surgical History / Comment(s): septoplasty. Past Psychological History: No Psychological Hx Reported Smoking Status: Never smoker Past Alcohol Use History: Occasional Past Drug Use History: None Reported General Exam Limitations: no limitations General appearance: alert, in no apparent distress Head exam: Present: atraumatic, normocephalic, normal inspection Eye exam: Present: normal appearance, PERRL, EOMI. Absent: scleral icterus, conjunctival injection, periorbital swelling ENT exam: Present: normal exam, normal oropharynx, mucous membranes moist Neck exam: Present: normal inspection, full ROM. Absent: tenderness, meningismus, lymphadenopathy Respiratory exam: Present: normal lung sounds bilaterally. Absent: respiratory distress, wheezes, rales, rhonchi, stridor Cardiovascular Exam: Present: regular rate, normal rhythm, normal heart sounds. Absent: systolic murmur, diastolic murmur, rubs, gallop, clicks GI/Abdominal exam: Present: soft, normal bowel sounds. Absent: distended, tenderness, guarding, rebound, rigid Course Vital Signs 06/19/21 09:51 Temperature 98.3 F Pulse Rate 66 Respiratory 18 Rate Blood Pressure 139/88 O2 Sat by Pulse 98 Oximetry Medical Decision Making - Medical Decision Making Patient remains a positive for covid 19. Patient we discharged in stable condition. - Lab Data Lab Results 06/19/21 Range/Units 09:53 Coronavirus (PCR) Detected A (Not Detectd) Disposition Clinical Impression: COVID-19 Disposition: HOME SELF-CARE Condition: Stable Instructions (If sedation given, give patient instructions): Coronavirus Disease 2019 (COVID-19) Additional Instructions: Please return to the Emergency Department if symptoms worsen or any other concerns. Is patient prescribed a controlled substance at d/c from ED?: No Referrals: None,Stated [Primary Care Provider] - 1-2 days Time of Disposition: 10:22
== END 2021-06-19 10:39 | disposition home or self-care (01) ==
LOC: EC 09:50
DX: U07.1 COVID-19 (principal)
CPT/HCPCS: 87635; 99282

== ENCOUNTER 2021-07-15 13:36 | Emergency (ER) | payer OTHER ==
[2021-07-15 14:14] VITALS: BP 133/60; PULSE 85; RESP 16; TEMP 98.2
--- NOTE | 2021-07-15 14:59 | XR ---
EXAMINATION TYPE: XR chest 2V DATE OF EXAM: 07/15/2021 COMPARISON: Chest x-ray February 14, 2021 HISTORY: Chest pain. TECHNIQUE: Frontal and lateral views of the chest are obtained. FINDINGS: There is no suspicious focal air space opacity, pleural effusion, or pneumothorax seen. T he cardiac silhouette size remains within normal limits. The osseous structures are intact. IMPRESSION: No acute process. No significant change from prior.
[2021-07-15] MEDS ORDERED: IBUPROFEN 800 MG TAB PO STA (16:27)
--- NOTE | 2021-07-15 17:29 | XR ---
EXAMINATION TYPE: XR lumbar spine 2 or 3V DATE OF EXAM: 07/15/2021 CLINICAL HISTORY: Pain after fall injury. TECHNIQUE: Frontal and lateral images of the lumbar spine are obtained. COMPARISON: CT abdomen and pelvis April 28, 2020 FINDINGS: There are 5 lumbar type vertebral bodies redemonstrated with sacralized right L5 segment. The lumbar spine shows stable and satisfactory alignment without evidence of acute fracture or dislo cation. Persistent tffuooed-ho-arlrja disc space narrowing lumbosacral junction otherwise Vertebral b delmi heights and disk space heights are within normal limits. The overlying soft tissue appears unrema rkable. IMPRESSION: As above.
--- NOTE | 2021-07-15 17:42 | ED ---
General Adult HPI - General Chief complaint: Fall Stated complaint: slip & fall, back pain Time Seen by Provider: 07/15/21 16:10 Source: patient, RN notes reviewed, old records reviewed Mode of arrival: ambulatory Limitations: no limitations - History of Present Illness Initial comments: Patient is a 35-year-old male with no significant past medical history who presents emergency Department after a fall yesterday. States he slipped and fell on ice. He landed on his back. Today he is having pain with deep inspiration on the left side of his ribs where he fell. He is also having midline and paraspinal muscle tenderness in the lumbar spine. He is seeking further evaluation. States she is still Ativan today. Denies any difficulty with urinating. Denies any saddle anesthesia. Denies any bowel incontinence. His no other acute complaints at this time, including nausea, vomiting, chest pain, shows of breath. Patient states he is not on blood thinners. Did not hit his head when he fell. No LOC when he fell. I evaluated the patient after he was placed in a room. This is after chest x-ray was obtained by triage. - Related Data Previous Rx's Medication Instructions Recorded Ibuprofen [Motrin] 400 mg PO Q6HR PRN 7 Days #28 tab 07/15/21 Lidocaine 5% Patch [Lidoderm 5% 1 patch TOPICAL DAILY PRN 7 Days 07/15/21 Patch] #7 patch Allergies Allergy/AdvReac Type Severity Reaction Status Date / Time No Known Allergies Allergy Verified 07/15/21 17:45 Review of Systems ROS Statement: Those systems with pertinent positive or pertinent negative responses have been documented in the HPI. Review of Systems: CONST: Denies fever EYES: Denies blurry vision ENT: Denies nasal congestion C/V: Denies Chest pain RESP: Denies shortness of breath GI: Denies abdominal pain : Denies dysuria SKIN: Denies rash. MSK: Endorses rib pain, back pain NEURO: Denies headache ROS Other: All systems not noted in ROS Statement are negative. Past Medical History Past Medical History: Seizure Disorder History of Any Multi-Drug Resistant Organisms: None Reported Past Surgical History: No Surgical Hx Reported Additional Past Surgical History / Comment(s): septoplasty, voicebox surgery Past Psychological History: No Psychological Hx Reported Smoking Status: Never smoker Past Alcohol Use History: Occasional Past Drug Use History: None Reported General Exam - General Exam Comments Initial Comments: General: In mild distress secondary to pain. HEAD: Normal with no signs of head trauma. EYES: PERRLA, EOMI, conjunctiva normal, no discharge. Pupils are 3 mm equal bilaterally. ENT: Hearing grossly intact, normal oropharynx. RESPIRATORY: Clear breath sounds bilaterally. No wheezes, rales, or rhonchi. C/V: Regular rate and rhythm. S1 and S2 auscultated, no edema, peripheral pulses 2+ and intact throughout ABD: Abd is soft, nontender, nondistended EXT: Normal range of motion, no obvious deformity. Patient does have some tenderness to palpation over the posterior aspect on the left side of the ribs, with some radiation to the axillary region. There is some mild paraspinal lumbar spine muscle tenderness to palpation as well as slight midline tenderness palpation. Appears to be more paraspinal in nature. SKIN: No rashes or lesions observed on exposed skin. NEURO: Alert and oriented 4. No focal sensory strength deficits. Patient can ambulate without difficulty. Limitations: no limitations Course Vital Signs 07/15/21 14:10 Temperature 98.2 F Pulse Rate 85 Respiratory 16 Rate Blood Pressure 133/60 O2 Sat by Pulse 98 Oximetry Medical Decision Making - Medical Decision Making Based on the patient's presentation and physical exam, I'm concerned for possible bony thoracic injury for the patient. Patient will be administered analgesia at this time. I did update the patient regarding his chest x-ray results which showed no acute process. I did recommend that we obtain a lumbar spine x-ray due to his pain and he was in agreement. Lumbar spine x-ray revealed no acute fracture or subluxation. There is chronic disc disease. Otherwise patient discharged home. I discussed the findings with the patient. He was in relief and in agreement with the plan for discharge home. I will provide him with a lidocaine patch prior to discharge as well as prescription. He'll also receive a prescription from us relaxers. Patient was in agreement this plan. We discussed rest, ice, as well as hot showers. I recommended that he stretches as well strengthens back muscles to avoid any further deterioration. I will provide the patient with a prescription for Robaxin, lidocaine patch. I instructed the patient to follow up with their PCP in the next 3 days. I provided contact information for follow up with orthopedics. I explained that the patient should return to the emergency department if they experience any worsening symptoms. Strict return precautions were discussed with the patient. The patient expressed understanding of these instructions. I answered all questions that the patient had. The patient was discharged home in fair condition with their prescriptions and follow up information. Disposition Clinical Impression: Fall, Back pain Disposition: HOME SELF-CARE Condition: Fair Instructions (If sedation given, give patient instructions): Muscle Strain (ED), Fall Prevention (ED) Prescriptions: Lidocaine 5% Patch [Lidoderm 5% Patch] 1 patch TOPICAL DAILY PRN 7 Days #7 patch PRN Reason: Pain Ibuprofen [Motrin] 400 mg PO Q6HR PRN 7 Days #28 tab PRN Reason: Pain Is patient prescribed a controlled substance at d/c from ED?: No Referrals: None,Stated [Primary Care Provider] - 1-2 days Louis Johnson MD [STAFF PHYSICIAN] - 1-2 days
[2021-07-15] MEDS ORDERED: LIDOCAINE 5% PATCH TOPICAL STA (17:43)
== END 2021-07-15 17:56 | disposition home or self-care (01) ==
LOC: EC 13:36
DX: M54.50 Low back pain, unspecified (principal); G40.909 Epilepsy, unspecified, not intractable, without status epilepticus; W00.9XXA Unspecified fall due to ice and snow, initial encounter
CPT/HCPCS: 71046; 72100; 99283

== ENCOUNTER 2022-01-14 16:26 | Emergency (ER) | payer OTHER ==
[2022-01-14 16:51] VITALS: BP 126/69; PULSE 85; RESP 18; TEMP 98.1
[2022-01-14] MEDS ORDERED: cefTRIAXone 1,000 MG VIAL (IM USE) IM STA (17:23)
--- NOTE | 2022-01-14 17:26 | ED ---
General Adult HPI - General Chief complaint: Wound/Laceration Stated complaint: wound on rt leg Time Seen by Provider: 01/14/22 17:07 Source: patient Mode of arrival: ambulatory Limitations: no limitations - History of Present Illness Initial comments: Patient is a 36 year old male presents the emergency room with complaints of a wound to his right thigh that occurred when he was using about tender on the pigmented table when the sofia slipped off the table and wrapped his clothing along with his skin up causing significant wound to develop. He has been keeping the wound covered with dressings but reports persistent purulent drainage redness and tenderness at the site. He denies any fevers or chills. He denies any concern regarding foreign body in the wound. He denies any previous issues with wound healing or any histories of antibiotic resistant infections. - Related Data Previous Rx's Medication Instructions Recorded Ibuprofen [Motrin] 400 mg PO Q6HR PRN 7 Days #28 tab 07/15/21 Lidocaine 5% Patch [Lidoderm 5% 1 patch TOPICAL DAILY PRN 7 Days 07/15/21 Patch] #7 patch Cephalexin [Keflex] 500 mg PO Q6HR 10 Days #40 cap 01/14/22 Allergies Allergy/AdvReac Type Severity Reaction Status Date / Time No Known Allergies Allergy Verified 01/14/22 16:51 Review of Systems ROS Statement: Those systems with pertinent positive or pertinent negative responses have been documented in the HPI. ROS Other: All systems not noted in ROS Statement are negative. Past Medical History Past Medical History: Seizure Disorder History of Any Multi-Drug Resistant Organisms: None Reported Past Surgical History: No Surgical Hx Reported Additional Past Surgical History / Comment(s): septoplasty, voicebox surgery Past Psychological History: No Psychological Hx Reported Smoking Status: Never smoker Past Alcohol Use History: Occasional Past Drug Use History: Marijuana General Exam Limitations: no limitations General appearance: alert, in no apparent distress Head exam: Present: atraumatic, normocephalic, normal inspection Eye exam: Present: normal appearance, PERRL, EOMI. Absent: scleral icterus, conjunctival injection, periorbital swelling ENT exam: Present: normal exam, mucous membranes moist Neck exam: Present: normal inspection. Absent: tenderness, meningismus, lymphadenopathy Respiratory exam: Present: normal lung sounds bilaterally. Absent: respiratory distress, wheezes, rales, rhonchi, stridor Cardiovascular Exam: Present: regular rate, normal rhythm, normal heart sounds. Absent: systolic murmur, diastolic murmur, rubs, gallop, clicks GI/Abdominal exam: Present: soft, normal bowel sounds. Absent: distended, tenderness, guarding, rebound, rigid Extremities exam: Present: full ROM, normal capillary refill. Absent: tenderness, pedal edema, joint swelling, calf tenderness Right Upper Leg exam: Present: full ROM, tenderness, abrasion (Large abrasion with scabbing and indurated tissue noted to right mid thigh no drainage at this time.), erythema. Absent: swelling, ecchymosis, deformity Back exam: Present: normal inspection Neurological exam: Present: alert, oriented X3, CN II-XII intact Psychiatric exam: Present: normal affect, normal mood Skin exam: Present: abrasion (As above) Course Vital Signs 01/14/22 16:45 Temperature 98.1 F Pulse Rate 85 Respiratory 18 Rate Blood Pressure 126/69 O2 Sat by Pulse 97 Oximetry Medical Decision Making - Medical Decision Making Due to injury with sanding belt bout will check x-ray of the right femur for foreign object. Will give IM Rocephin and check CBC along with CMP and lactic acid to evaluate infectious process. Denies analgesic need. X-ray of the femur negative no soft tissue injury or foreign body. Labs stable. Will discharge home on Keflex advised to continue to monitor for worsening of infection. Advised to follow-up with his primary care provider Case discussed with Dr. Marin. - Lab Data Result diagrams: 01/14/22 17:15 01/14/22 17:15 Lab Results 01/14/22 01/14/22 01/14/22 Range/Units 17:15 17:15 17:15 WBC 7.9 (3.8-10.6) k/uL RBC 5.18 (4.30-5.90) m/uL Hgb 16.5 (13.0-17.5) gm/dL Hct 46.5 (39.0-53.0) % MCV 89.9 (80.0-100.0) fL MCH 31.9 (25.0-35.0) pg MCHC 35.5 (31.0-37.0) g/dL RDW 13.3 (11.5-15.5) % Plt Count 291 (150-450) k/uL MPV 7.8 Neutrophils % 68 % Lymphocytes % 22 % Monocytes % 4 % Eosinophils % 3 % Basophils % 1 % Neutrophils # 5.4 (1.3-7.7) k/uL Lymphocytes # 1.8 (1.0-4.8) k/uL Monocytes # 0.3 (0-1.0) k/uL Eosinophils # 0.2 (0-0.7) k/uL Basophils # 0.0 (0-0.2) k/uL Sodium 140 (137-145) mmol/L Potassium 4.2 (3.5-5.1) mmol/L Chloride 106 (98-107) mmol/L Carbon Dioxide 24 (22-30) mmol/L Anion Gap 10 mmol/L BUN 17 (9-20) mg/dL Creatinine 0.99 (0.66-1.25) mg/dL Est GFR (CKD-EPI)AfAm >90 (>60 ml/min/1.73 sqM) Est GFR (CKD-EPI)NonAf >90 (>60 ml/min/1.73 sqM) Glucose 112 H (74-99) mg/dL Plasma Lactic Acid Magdaleno 0.9 (0.7-2.0) mmol/L Calcium 8.9 (8.4-10.2) mg/dL Total Bilirubin 0.7 (0.2-1.3) mg/dL AST 36 (17-59) U/L ALT 28 (4-49) U/L Alkaline Phosphatase 56 (38-126) U/L Total Protein 5.8 L (6.3-8.2) g/dL Albumin 3.7 (3.5-5.0) g/dL Disposition Clinical Impression: Cellulitis of right thigh Disposition: HOME SELF-CARE Condition: Stable Instructions (If sedation given, give patient instructions): Cellulitis (ED) Additional Instructions: Please complete course of antibiotics. Keep wound clean and dry. Continue to cover wound to prevent further abrasions and friction sheer. Please monitor for signs and symptoms of infection worsening and return to the emergency room or seek medical attention as appropriate. Please follow-up with your primary care provider. Please return to the Emergency Department if symptoms worsen or any other concerns. Prescriptions: Cephalexin [Keflex] 500 mg PO Q6HR 10 Days #40 cap Is patient prescribed a controlled substance at d/c from ED?: No Referrals: None,Stated [Primary Care Provider] - 1-2 days
[2022-01-14] MEDS ORDERED: cefTRIAXone IN SWFI 1,000 MG/10 ML SYRINGE IVP STA (17:46)
[2022-01-14 17:48] LABS: Basophils % (A) 1 %; Eosinophils # (A) 0.2 k/uL (0-0.7); Eosinophils % (A) 3 %; HCT 46.5 % (39.0-53.0); HGB 16.5 gm/dL (13.0-17.5); Lymphocytes # (A) 1.8 k/uL (1.0-4.8); Lymphocytes % (A) 22 %; MCH 31.9 pg (25.0-35.0); MCHC 35.5 g/dL (31.0-37.0); MCV 89.9 fL (80.0-100.0); Mean Platelet Volume 7.8; Monocytes # (A) 0.3 k/uL (0-1.0); Monocytes % (A) 4 %; Neutrophils # (A) 5.4 k/uL (1.3-7.7); Neutrophils % (A) 68 %; Platelet Count 291 k/uL (150-450); RBC 5.18 m/uL (4.30-5.90); RDW 13.3 % (11.5-15.5); WBC 7.9 k/uL (3.8-10.6)
[2022-01-14 17:59] LABS: ALT 28 U/L (4-49); AST 36 U/L (17-59); African American GFR (CKD) >90 (>60 ml/min/1.73 sqM); Albumin 3.7 g/dL (3.5-5.0); Alkaline Phosphatase 56 U/L (38-126); Anion Gap 10 mmol/L; Blood Urea Nitrogen 17 mg/dL (9-20); Calcium 8.9 mg/dL (8.4-10.2); Carbon Dioxide 24 mmol/L (22-30); Chloride 106 mmol/L (98-107); Glucose 112 mg/dL (74-99); Non-African American GFR(CKD) >90 (>60 ml/min/1.73 sqM); Potassium 4.2 mmol/L (3.5-5.1); Sodium 140 mmol/L (137-145); Total Bilirubin 0.7 mg/dL (0.2-1.3); Total Protein 5.8 g/dL (6.3-8.2)
--- NOTE | 2022-01-14 18:31 | XR ---
EXAMINATION TYPE: XR femur RT DATE OF EXAM: 01/14/2022 COMPARISON: NONE HISTORY: Pain TECHNIQUE: 4 views FINDINGS: Right femur is intact. I see no fracture nor dislocation. Joint spaces are normal. IMPRESSION: Negative right femur exam.
== END 2022-01-14 18:52 | disposition home or self-care (01) ==
LOC: EC 16:26
DX: L03.115 Cellulitis of right lower limb (principal); F12.90 Cannabis use, unspecified, uncomplicated
CPT/HCPCS: 36415; 80053; 83605; 85025; 87040; 73552; 99283; 96374; J0696

== ENCOUNTER 2022-04-17 13:15 | Observation (INO) | payer OTHER ==
[2022-04-17] MEDS ORDERED: NITROGLYCERIN OINT 1 INCH/GM PACKET TOPICAL STA (13:25)
--- NOTE | 2022-04-17 13:36 | ED ---
General Adult HPI - General Chief complaint: Chest Pain Stated complaint: chest pain Time Seen by Provider: 04/17/22 13:16 Source: patient, EMS, RN notes reviewed Mode of arrival: EMS Limitations: no limitations - History of Present Illness Initial comments: Patient is a pleasant 36-year-old male presenting to the emergency room via EMS after developing chest pain at work just prior to his arrival to the emergency room. He reports that he was returning to work after eating lunch and developed nonreproducible left-sided chest pain along with associated flushing diaphoresis and blurred vision. He reports that his chest pain improved after receiving aspirin administered by EMS but remains at a 4 out of 10. He states that his blurred vision has improved and now he just feels "groggy". He denies any shortness of breath, abdominal pain, nausea, vomiting or diarrhea. He denies any cardiovascular history including any family history of known coronary artery disease less than age of 50. He is a nonsmoker without any past medical history significant for hypertension, hyperlipidemia, or diabetes. He has a past medical history significant for seizures without any regular seizure medications. - Related Data Home Medications Medication Instructions Recorded Confirmed No Known Home Medications 04/17/22 04/17/22 Allergies Allergy/AdvReac Type Severity Reaction Status Date / Time No Known Allergies Allergy Verified 04/17/22 13:48 Review of Systems ROS Statement: Those systems with pertinent positive or pertinent negative responses have been documented in the HPI. ROS Other: All systems not noted in ROS Statement are negative. Past Medical History Past Medical History: Seizure Disorder History of Any Multi-Drug Resistant Organisms: None Reported Past Surgical History: No Surgical Hx Reported Additional Past Surgical History / Comment(s): septoplasty, voicebox surgery Past Psychological History: No Psychological Hx Reported Smoking Status: Never smoker Past Alcohol Use History: Occasional Past Drug Use History: Marijuana General Exam Limitations: no limitations General appearance: alert, in no apparent distress Head exam: Present: atraumatic, normocephalic, normal inspection Eye exam: Present: normal appearance, PERRL, EOMI. Absent: scleral icterus, c onjunctival injection, periorbital swelling ENT exam: Present: normal exam, mucous membranes moist Neck exam: Present: normal inspection, full ROM Respiratory exam: Present: normal lung sounds bilaterally. Absent: respiratory distress, wheezes, rales, rhonchi, stridor Cardiovascular Exam: Present: regular rate, normal rhythm, normal heart sounds. Absent: systolic murmur, diastolic murmur, rubs, gallop, clicks GI/Abdominal exam: Present: soft, normal bowel sounds. Absent: distended, tenderness, guarding, rebound, rigid Rectal exam: Present: deferred Extremities exam: Present: normal inspection, full ROM. Absent: tenderness, pedal edema, joint swelling Back exam: Present: normal inspection Neurological exam: Present: alert, oriented X3, CN II-XII intact Psychiatric exam: Present: normal affect, normal mood Skin exam: Present: warm, dry, intact, other (John complexion to chest) Course Vital Signs 04/17/22 13:18 Temperature 98.1 F Pulse Rate 79 Respiratory 18 Rate Blood Pressure 151/90 O2 Sat by Pulse 98 Oximetry Medical Decision Making - Medical Decision Making 36-year-old male presenting to the emergency room with chest pain with associated symptoms of diaphoresis and blurred vision will start workup for chest pain with EKG, chest x-ray, CBC, coags, magnesium and troponin. Aspirin given by EMS will give 1 inch of Nitropaste and monitor symptoms. EKG shows normal sinus rhythm, troponin negative, a loculated normal. Mild is noted. CBC normal, coags normal. Chest x-ray read by me showing no cardiopulmonary process. Findings reviewed with patient due to the symptom onset sudden nonreproducible chest pain with associated symptoms recommend observation stay for continued monitoring. Patient agreeable for observation stay. Presentation and evaluation findings discussed with Dr. Franklin computer applications instructor for [facility] physicians who is accepting of observation admission. Will place orders. Case discussed with Dr. Evangelista. - Lab Data Result diagrams: 04/17/22 13:38 04/17/22 13:38 Lab Results 04/17/22 04/17/22 04/17/22 Range/Units 13:38 13:38 13:38 WBC 6.0 (3.8-10.6) k/uL RBC 5.25 (4.30-5.90) m/uL Hgb 16.5 (13.0-17.5) gm/dL Hct 45.3 (39.0-53.0) % MCV 86.4 (80.0-100.0) fL MCH 31.5 (25.0-35.0) pg MCHC 36.5 (31.0-37.0) g/dL RDW 13.0 (11.5-15.5) % Plt Count 299 (150-450) k/uL MPV 7.5 Neutrophils % 68 % Lymphocytes % 23 % Monocytes % 5 % Eosinophils % 2 % Basophils % 1 % Neutrophils # 4.1 (1.3-7.7) k/uL Lymphocytes # 1.4 (1.0-4.8) k/uL Monocytes # 0.3 (0-1.0) k/uL Eosinophils # 0.1 (0-0.7) k/uL Basophils # 0.1 (0-0.2) k/uL PT 10.8 (9.0-12.0) sec INR 1.0 (<1.2) APTT 26.9 (22.0-30.0) sec Sodium 140 (137-145) mmol/L Potassium 4.6 (3.5-5.1) mmol/L Chloride 105 (98-107) mmol/L Carbon Dioxide 26 (22-30) mmol/L Anion Gap 9 mmol/L BUN 18 (9-20) mg/dL Creatinine 1.13 (0.66-1.25) mg/dL Est GFR (CKD-EPI)AfAm >90 (>60 ml/min/1.73 sqM) Est GFR (CKD-EPI)NonAf 84 (>60 ml/min/1.73 sqM) Glucose 73 L (74-99) mg/dL Calcium 9.1 (8.4-10.2) mg/dL Magnesium 2.0 (1.6-2.3) mg/dL Total Bilirubin 0.9 (0.2-1.3) mg/dL AST 34 (17-59) U/L ALT 38 (4-49) U/L Alkaline Phosphatase 56 (38-126) U/L Troponin I (0.000-0.034) ng/mL Total Protein 7.3 (6.3-8.2) g/dL Albumin 5.0 (3.5-5.0) g/dL 04/17/22 Range/Units 13:38 WBC (3.8-10.6) k/uL RBC (4.30-5.90) m/uL Hgb (13.0-17.5) gm/dL Hct (39.0-53.0) % MCV (80.0-100.0) fL MCH (25.0-35.0) pg MCHC (31.0-37.0) g/dL RDW (11.5-15.5) % Plt Count (150-450) k/uL MPV Neutrophils % % Lymphocytes % % Monocytes % % Eosinophils % % Basophils % % Neutrophils # (1.3-7.7) k/uL Lymphocytes # (1.0-4.8) k/uL Monocytes # (0-1.0) k/uL Eosinophils # (0-0.7) k/uL Basophils # (0-0.2) k/uL PT (9.0-12.0) sec INR (<1.2) APTT (22.0-30.0) sec Sodium (137-145) mmol/L Potassium (3.5-5.1) mmol/L Chloride (98-107) mmol/L Carbon Dioxide (22-30) mmol/L Anion Gap mmol/L BUN (9-20) mg/dL Creatinine (0.66-1.25) mg/dL Est GFR (CKD-EPI)AfAm (>60 ml/min/1.73 sqM) Est GFR (CKD-EPI)NonAf (>60 ml/min/1.73 sqM) Glucose (74-99) mg/dL Calcium (8.4-10.2) mg/dL Magnesium (1.6-2.3) mg/dL Total Bilirubin (0.2-1.3) mg/dL AST (17-59) U/L ALT (4-49) U/L Alkaline Phosphatase (38-126) U/L Troponin I <0.012 (0.000-0.034) ng/mL Total Protein (6.3-8.2) g/dL Albumin (3.5-5.0) g/dL - EKG Data EKG Comments: EKG completed at 1333 to regular by me shows sinus rhythm, ventricular rate 74 bpm, ME interval 162 ms, QRS duration 87 ms, QT/QTC 344/371 ms, PRT axes 54, 78, 39 - Radiology Data Radiology results: report reviewed, image reviewed Chest x-ray two-view admission by her radiologist lungs are clear. There is no pneumothorax, pleural effusion or focal pneumonia. Heart is normal size. No overt failure. Disposition Clinical Impression: Chest pain Disposition: ADMITTED IP TO THIS HOSP Condition: Stable Is patient prescribed a controlled substance at d/c from ED?: No Referrals: None,Stated [Primary Care Provider] - 1-2 days Time of Disposition: 15:00
[2022-04-17 13:54] LABS: Basophils # (A) 0.1 k/uL (0-0.2); Basophils % (A) 1 %; Eosinophils # (A) 0.1 k/uL (0-0.7); Eosinophils % (A) 2 %; HCT 45.3 % (39.0-53.0); HGB 16.5 gm/dL (13.0-17.5); Lymphocytes # (A) 1.4 k/uL (1.0-4.8); Lymphocytes % (A) 23 %; MCH 31.5 pg (25.0-35.0); MCHC 36.5 g/dL (31.0-37.0); MCV 86.4 fL (80.0-100.0); Mean Platelet Volume 7.5; Monocytes # (A) 0.3 k/uL (0-1.0); Monocytes % (A) 5 %; Neutrophils # (A) 4.1 k/uL (1.3-7.7); Neutrophils % (A) 68 %; Platelet Count 299 k/uL (150-450); RBC 5.25 m/uL (4.30-5.90)
[2022-04-17 14:02] LABS: Partial Thromboplastin Time 26.9 sec (22.0-30.0); Prothrombin Time 10.8 sec (9.0-12.0)
[2022-04-17 14:11] LABS: ALT 38 U/L (4-49); AST 34 U/L (17-59); African American GFR (CKD) >90 (>60 ml/min/1.73 sqM); Alkaline Phosphatase 56 U/L (38-126); Anion Gap 9 mmol/L; Blood Urea Nitrogen 18 mg/dL (9-20); Calcium 9.1 mg/dL (8.4-10.2); Carbon Dioxide 26 mmol/L (22-30); Chloride 105 mmol/L (98-107); Glucose 73 mg/dL (74-99); Non-African American GFR(CKD) 84 (>60 ml/min/1.73 sqM); Potassium 4.6 mmol/L (3.5-5.1); Sodium 140 mmol/L (137-145); Total Bilirubin 0.9 mg/dL (0.2-1.3); Total Protein 7.3 g/dL (6.3-8.2)
--- NOTE | 2022-04-17 14:40 | XR ---
EXAMINATION TYPE: XR chest 2V DATE OF EXAM: 04/17/2022 COMPARISON: 07/15/2021 TECHNIQUE: PA and lateral views submitted. HISTORY: Chest pain FINDINGS: The lungs are clear and there is no pneumothorax, pleural effusion, or focal pneumonia. Heart size normal. No overt failure. IMPRESSION: 1. No acute process.
[2022-04-17] MEDS ORDERED: NALOXONE 0.4 MG/ML 1 ML VIAL IV PRN (15:01)
[2022-04-17] MEDS ORDERED: ACETAMINOPHEN TAB 325 MG TAB PO PRN (18:15)
--- NOTE | 2022-04-17 18:23 | P.HPIM ---
History of Present Illness H&P Date: 04/17/22 History of Presenting Illness: Patient is a very pleasant 36 y/o male with a PMH of seizure disorder not on medications and cannibus use. He presented to the ER with a chief complaint of chest pain and dizziness/lightheadedness. He reports shortly after lunch while at work he began to develop some dizziness/lightheadedness which was shortly followed by blurring of his vision, chest pressure to left anterior chest radiating into his left shoulder and down his left arm. He states that he went to his medical office at his work and was evaluated by the nurse and told that his blood pressure was elevated 160's and his heart rate was elevated in the 90's so they called EMS for transfer to the hospital. Pt was given aspirin by EMS and reported improvement of chest pain and full resolution of dizziness, lightheadedness, and blurred vision. Pt denied experiencing any headache, tinnitus, palpitations, shortness of breath, abdominal pain, nausea, vomiting, diaphoresis, or experiencing any numbness, tingling, weakness, or swelling in his extremities. Pt underwent full evaluation in the ER. EKG revealing NSR at 74 bpm. CXR negative for acute process. CBC, Coags, and CMP unremarkable with the exception of glucose of 73. Pt was admitted under our services. Heart Score 0. Review of systems: Pertinent positives and negatives as discussed in HPI, a complete review of syst ems was performed and all other systems are negative. Physical exam: Vital signs reviewed and stable. General: Nontoxic, no distress and appears stated age. Derm: Skin warm and dry, normal coloration for ethnicity. Head: Atraumatic, normocephalic and symmetric. Eyes: EOMs intact, no lid lag, and anicteric sclera Mouth: no lip lesions, mucus membranes moist Cardiovascular: regular rate and rhythm with normal S1S2, no murmur, positive posterior tibial pulses bilaterally, and cap refill < 2 seconds. Lungs: Respirations even, regular, and unlabored on room air. Lungs CTA bilaterally, no rhonchi, no rales, no wheezing, and no accessory muscle usage. Abdominal: soft, nontender to palpation, no guarding, no appreciable organomegaly Ext: ROM intact. No gross muscle atrophy, no edema, no contractures Neuro: Speech clear, face symmetrical and CN II-XII grossly intact with no noted focal neuro deficits Psych: Alert and oriented to person, place, time, and situation. Appropriate and pleasant affect. Assessment and Plan of Care: Chest pain, rule out acute coronary event -Telemetry monitoring -Trend troponins -Cardiac diet -Aspirin -Lipid profile with a.m. labs. -Echocardiogram The patient is admitted with an anticipated less than 2 midnight stay for evaluation of chest pain CODE STATUS: Full code DVT prophylaxis: Heparin Discussed with: Patient and RN Anticipated discharge date: Tomorrow Anticipated discharge place: Home A total of 40 minutes was spent on the care of this complex patient more than 50% of the time was spent in counseling and care coordination. Rigo Edgar NP rendered care for this patient independently, reviewed the findings and plan as documented in the note above. I did not physically speak with or examine the patient on this date. Past Medical History Past Medical History: Seizure Disorder History of Any Multi-Drug Resistant Organisms: None Reported Past Surgical History: No Surgical Hx Reported Additional Past Surgical History / Comment(s): septoplasty, voicebox surgery Past Psychological History: No Psychological Hx Reported Smoking Status: Never smoker Past Alcohol Use History: Occasional Past Drug Use History: Marijuana Medications and Allergies Home Medications Medication Instructions Recorded Confirmed Type No Known Home Medications 04/17/22 04/17/22 History Allergies Allergy/AdvReac Type Severity Reaction Status Date / Time No Known Allergies Allergy Verified 04/17/22 13:48 Physical Exam Osteopathic Statement: *. No significant issues noted on an osteopathic structural exam other than those noted in the History and Physical/Consult. Vitals: Vital Signs Temp Pulse Pulse Resp BP Pulse Ox 04/17/22 14:56 76 78 18 94 L 04/17/22 13:18 98.1 F 79 18 151/90 98 Intake and Output 04/17/22 04/17/22 04/17/22 06:59 14:59 22:59 Other: Weight 104.326 kg Results CBC & Chem 7: 04/17/22 13:38 04/17/22 13:38 Labs: Abnormal Lab Results - Last 24 Hours (Table) 04/17/22 Range/Units 13:38 Glucose 73 L (74-99) mg/dL
[2022-04-17 18:26] LABS: Glucose,Whole Blood 94 mg/dL (70-110)
[2022-04-17] MEDS: HEPARIN SODIUM,PORCINE/PF 5,000 UNIT/0.5 ML SYRINGE SQ SCH (23:29)
[2022-04-18 07:27] VITALS: BP 118/73; PULSE 64; RESP 18; TEMP 98.2
[2022-04-18] MEDS ORDERED: ASPIRIN 81 MG PO SCH (09:00)
[2022-04-18] MEDS: HEPARIN SODIUM,PORCINE/PF 5,000 UNIT/0.5 ML SYRINGE SQ SCH (09:03)
--- NOTE | 2022-04-18 11:02 | P.DS ---
Providers Date of admission: 04/17/22 15:16 Expected date of discharge: 04/18/22 Attending physician: Feliciano Franklin MD Primary care physician: Stated None Hospital Course: Discharge Diagnosis: Chest pain, acute coronary event ruled out. Cannabis use Seizure disorder Hospital Course: Patient is a very pleasant 36 y/o male with a PMH of seizure disorder not on medications and cannibus use. He presented to the ER with a chief complaint of chest pain and dizziness/lightheadedness. He reports shortly after lunch while at work he began to develop some dizziness/lightheadedness which was shortly followed by blurring of his vision, chest pressure to left anterior chest radiating into his left shoulder and down his left arm. He states that he went to his medical office at his work and was evaluated by the nurse and told that his blood pressure was elevated 160's and his heart rate was elevated in the 90's so they called EMS for transfer to the hospital. Pt was given aspirin by EMS and reported improvement of chest pain and full resolution of dizziness, lightheadedness, and blurred vision. Pt denied experiencing any headache, tinnitus, palpitations, shortness of breath, abdominal pain, nausea, vomiting, diaphoresis, or experiencing any numbness, tingling, weakness, or swelling in his extremities. Pt underwent full evaluation in the ER. EKG revealing NSR at 74 bpm. CXR negative for acute process. CBC, Coags, and CMP unremarkable with the exception of glucose of 73. Pt was admitted under our services. Heart Score 0. Troponins trended overnight all negative at less than 0.0123 draws. Patient reports feeling free from any chest pain or discomfort. Order was placed for urine drug screen as well as echocardiogram patient declining to complete these at this time requesting discharge home. Patient states that he is free from any chest pain and feels great and has his son's birthday green party to attend today. Patient states he will follow up outpatient with PCP and cardiology in 1 week. Acute coronary event has been ruled out and patient is stable for discharge home. Physical exam: Vital signs reviewed and stable. General: Nontoxic, no distress and appears stated age. Derm: Skin warm and dry, normal coloration for ethnicity. Head: Atraumatic, normocephalic and symmetric. Eyes: EOMs intact, no lid lag, and anicteric sclera Mouth: no lip lesions, mucus membranes moist Cardiovascular: regular rate and rhythm with normal S1S2, no murmur, positive posterior tibial pulses bilaterally, and cap refill < 2 seconds. Lungs: Respirations even, regular, and unlabored on room air. Lungs CTA bilaterally, no rhonchi, no rales, no wheezing, and no accessory muscle usage. Abdominal: soft, nontender to palpation, no guarding, no appreciable organomegaly Ext: ROM intact. No gross muscle atrophy, no edema, no contractures Neuro: Speech clear, face symmetrical and CN II-XII grossly intact with no noted focal neuro deficits Psych: Alert and oriented to person, place, time, and situation. Appropriate and pleasant affect. A total of 29 minutes of time were spent preparing this complex discharge summary. Pt was discharged on 04/18/22 at 11:01 AM. I reviewed the documentation as provided by the CAMILA above, who is the original author of this note. I agree with the documented assessment and plan, with the following changes: none Patient Condition at Discharge: Stable Plan - Discharge Summary New Discharge Prescriptions: No Action No Known Home Medications Discharge Medication List No Known Home Medications 04/17/22 [History] Follow up Appointment(s)/Referral(s): Hillary Baltazar MD [STAFF PHYSICIAN] - 1 Week Miguel Angel Kong MD [REFERRING] - 1 Week Activity/Diet/Wound Care/Special Instructions: Activity: As tolerated. Take breaks as needed. Diet: Heart healthy and carb consistent diet. Avoid salts, or foods with hidden salts such as canned or boxed foods and frozen dinners. Extra salt makes your heart work harder and traps the fluid in your body for longer. Special Instructions: You have opted not to have echocardiogram completed in the hospital and requested to follow up outpatient with transplant case manager. EKG and troponins normal findings and an acute cardiac event has been ruled out. Recommend cessation of cannabis use. Blood pressure was slightly elevated upon arrival to the emergency department, has since been stable. Recommend monitoring her blood pressure daily and documenting findings in a daily log/terminal tapering with you to your next doctor's appointment Thank you for allowing us to participate in your care, it was truly a pleasure having you for our patient!!! Discharge Disposition: HOME SELF-CARE
== END 2022-04-18 11:17 | disposition home or self-care (01) ==
LOC: EC 13:15 → 6NMEDSUR 15:16
PROVIDERS: ADMIT Internal Medicine; ATTEND Internal Medicine
DX: R07.89 Other chest pain (principal); G40.909 Epilepsy, unspecified, not intractable, without status epilepticus; R03.0 Elevated blood-pressure reading, without diagnosis of hypertension; R42 Dizziness and giddiness; H53.8 Other visual disturbances; Z98.890 Other specified postprocedural states; Z71.89 Other specified counseling
CPT/HCPCS: 96372; 99285; 36415; 93005; 80053; 83735; 84484; 85025; 85610; 85730; 71046; G0378 ×2; J1644

== ENCOUNTER 2022-09-15 08:21 | Emergency (ER) | payer OTHER ==
[2022-09-15 08:30] VITALS: TEMP 98
[2022-09-15] MEDS ORDERED: SODIUM CHLORIDE 0.9% 1,000 ML IV STA (08:51)
[2022-09-15 09:29] LABS: ALT 48 U/L (4-49); AST 41 U/L (17-59); African American GFR (CKD) >90 (>60 ml/min/1.73 sqM); Albumin 4.5 g/dL (3.5-5.0); Alkaline Phosphatase 71 U/L (38-126); Anion Gap 11 mmol/L; Blood Urea Nitrogen 15 mg/dL (9-20); Calcium 9.4 mg/dL (8.4-10.2); Carbon Dioxide 26 mmol/L (22-30); Chloride 104 mmol/L (98-107); Glucose 95 mg/dL (74-99); Lipase 80 U/L (23-300); Non-African American GFR(CKD) >90 (>60 ml/min/1.73 sqM); Potassium 4.2 mmol/L (3.5-5.1); Sodium 141 mmol/L (137-145); Total Protein 7.3 g/dL (6.3-8.2)
--- NOTE | 2022-09-15 09:43 | CT ---
EXAMINATION TYPE: CT abdomen pelvis w con CT DLP: 1647.5 mGycm, Automated exposure control for dose reduction was used. DATE OF EXAM: 09/15/2022 9:35 AM COMPARISON: CT abdomen pelvis most recent from 04/28/2020 CLINICAL INDICATION:Male, 37 years old with history of left side/flank pain; Left Flank and abdominal pain TECHNIQUE: Axial CT of the abdomen and pelvis. Sagittal and coronal reformats were created on a [employer] workstation. Contrast used:100 ml mL of Isovue 300 with IV Contrast, Oral contrast used: without Oral Contrast FINDINGS: LOWER CHEST: Unremarkable ABDOMEN LIVER: Unremarkable GALLBLADDER AND BILE DUCTS: Unremarkable. PANCREAS: Unremarkable. SPLEEN: Unremarkable. ADRENAL GLANDS: Unremarkable. KIDNEYS AND URETERS: No evidence of hydronephrosis or renal calculus. The ureters are unremarkable. PELVIS BLADDER: Unremarkable REPRODUCTIVE: Unremarkable. ABDOMEN & PELVIS STOMACH AND BOWEL: No evidence of bowel obstruction. Appendix is normal. The left colon is relatively nondistended. No significant colonic diverticula present. No evidence for bowel wall thickening. PERITONEUM/RETROPERITONEUM: No evidence of pneumoperitoneum or free fluid. VASCULATURE: No evidence of aortic aneurysm. MUSCULOSKELETAL: No acute osseous abnormalities LYMPH NODES: No gross evidence for lymphadenopathy. SOFT TISSUE/ABDOMINAL WALL: Fat-containing umbilical hernia. Additional ventral hernia more superiorl y with fat stranding. IMPRESSION: 1. No evidence for acute abdominal process. No obstructive uropathy, no evidence for diverticulitis. 2. Ventral wall hernia containing fat with some stranding changes near midline stable from 2019.
[2022-09-15 09:55] LABS: Basophils % (A) 1 %; Eosinophils # (A) 0.1 k/uL (0-0.7); Eosinophils % (A) 2 %; HCT 43.9 % (39.0-53.0); HGB 16.2 gm/dL (13.0-17.5); Hyperchromasia Moderate; Lymphocytes # (A) 1.4 k/uL (1.0-4.8); Lymphocytes % (A) 20 %; MCH 31.3 pg (25.0-35.0); MCHC 36.8 g/dL (31.0-37.0); MCV 85.2 fL (80.0-100.0); Mean Platelet Volume 7.7; Monocytes # (A) 0.3 k/uL (0-1.0); Monocytes % (A) 4 %; Neutrophils # (A) 5.2 k/uL (1.3-7.7); Neutrophils % (A) 72 %; Platelet Count 257 k/uL (150-450); RBC 5.16 m/uL (4.30-5.90); RDW 13.4 % (11.5-15.5); WBC 7.2 k/uL (3.8-10.6)
[2022-09-15 10:02] LABS: Appearance,Urine Clear (Clear); Bilirubin,Urine Negative (Negative); Blood,Urine Negative (Negative); Color,Urine Light Yellow; Glucose,Urine (UA) Negative (Negative); Ketones,Urine Negative (Negative); Leukocyte Esterase,Urine Negative (Negative); Nitrite,Urine Negative (Negative); Protein,Urine Negative (Negative); Specific Gravity,Urine 1.037 (1.001-1.035); Urobilinogen,Urine <2.0 mg/dL (<2.0)
--- NOTE | 2022-09-15 10:11 | ED ---
Abdominal Pain HPI - General Chief Complaint: Abdominal Pain Stated Complaint: Abd Pain Time Seen by Provider: 09/15/22 08:32 Source: patient, RN notes reviewed Mode of arrival: ambulatory Limitations: no limitations - History of Present Illness Initial Comments: This a 37-year-old male presents emergency Department with chief complaint of abdominal pain. Patient states she's been having abdominal last several days. Patient states that it is worse with movement better rest. Denies any chest pain shortness with no reflux symptoms. He does take her medications for GERD. Denies any change in bowel habits denies any history kidney stones no dysuria no hematuria. Denies fevers or chills. - Related Data Home Medications Medication Instructions Recorded Confirmed Famotidine [Pepcid] 10 mg PO DAILY 09/15/22 09/15/22 Allergies Allergy/AdvReac Type Severity Reaction Status Date / Time No Known Allergies Allergy Verified 09/15/22 09:52 Review of Systems ROS Statement: Those systems with pertinent positive or pertinent negative responses have been documented in the HPI. ROS Other: All systems not noted in ROS Statement are negative. Past Medical History Past Medical History: Seizure Disorder History of Any Multi-Drug Resistant Organisms: None Reported Past Surgical History: No Surgical Hx Reported Additional Past Surgical History / Comment(s): septoplasty, voicebox surgery Past Psychological History: No Psychological Hx Reported Smoking Status: Never smoker Past Alcohol Use History: Occasional Past Drug Use History: Marijuana General Exam Limitations: no limitations Head exam: Present: atraumatic, normocephalic, normal inspection Eye exam: Present: normal appearance, PERRL, EOMI. Absent: scleral icterus, conjunctival injection, periorbital swelling ENT exam: Present: normal exam, normal oropharynx, mucous membranes moist Neck exam: Present: normal inspection, full ROM. Absent: tenderness, meningismus, lymphadenopathy Respiratory exam: Present: normal lung sounds bilaterally. Absent: respiratory distress, wheezes, rales, rhonchi, stridor Cardiovascular Exam: Present: regular rate, normal rhythm, normal heart sounds. Absent: systolic murmur, diastolic murmur, rubs, gallop, clicks GI/Abdominal exam: Present: soft, tenderness (Mild left-sided), normal bowel sounds. Absent: distended, guarding, rebound, rigid Back exam: Absent: CVA tenderness (R), CVA tenderness (L) Neurological exam: Present: alert, oriented X3 Skin exam: Present: warm, dry, intact, normal color. Absent: rash Course Vital Signs 09/15/22 09/15/22 09/15/22 08:29 08:51 09:50 Temperature 98 F Pulse Rate 80 Respiratory 16 Rate Blood Pressure 139/85 132/89 142/97 O2 Sat by Pulse 97 Oximetry 09/15/22 10:26 Temperature 98 F Pulse Rate 72 Respiratory 18 Rate Blood Pressure 128/79 O2 Sat by Pulse 95 Oximetry Medical Decision Making - Medical Decision Making Was pt. sent in by a medical professional or institution (, PA, [employer], urgent care, hospital, or care home...) When possible be specific @ -No Did you speak to anyone other than the patient for history (EMS, parent, family, police, friend...)? What history was obtained from this source @ -No Did you review nursing and triage notes (agree or disagree)? Why? @ -I reviewed and agree with nursing and triage notes Were old charts reviewed (outside hosp., previous admission, EMS record, old EKG, old radiological studies, urgent care reports/EKG's, care home records)? Report findings @ -No old charts were reviewed Differential Diagnosis (chest pain, altered mental status, abdominal pain women, abdominal pain men, vaginal bleeding, weakness, fever, dyspnea, syncope, headache, dizziness, GI bleed, back pain, seizure, CVA, palpatations, mental health, musculoskeletal)? @ -nDifferential Abdominal Pain Men: Appendicitis, cholecystitis, diverticulosis, ischemic bowel, pancreatitis, hepatitis, UTI, gastroenteritis, AAA, incarcerated hernia, bowel obstruction, constipation, inflammatory bowel, hepatitis, peptic ulcer disease, splenic infarction, perforated viscus, testicular torsion, this is not meant to be an all-inclusive list EKG interpreted by me (3pts min.). @ -None X-rays interpreted by me (1pt min.). @ -None done CT interpreted by me (1pt min.). @ -CT abdomen pelvis shows stable ventral hernia, no other acute processes noted on CT of abdomen and pelvis U/S interpreted by me (1pt. min.). @ -None done What testing was considered but not performed or refused? (CT, X-rays, U/S, labs)? Why? @ -None What meds were considered but not given or refused? Why? @ -None Did you discuss the management of the patient with other professionals (joseluis lambert i.e. , PA, [employer], lab, RT, psych nurse, social media editor, critical care educator, teacher, dog license officer supervisor, field case manager)? Give summary @ -No Was smoking cessation discussed for >3mins.? @ -No Was critical care preformed (if so, how long)? @ -No Were there social determinants of health that impacted care today? How? (Homelessness, low income, unemployed, alcoholism, drug addiction, transportation, low edu. Level, literacy, decrease access to med. care, [facility], rehab)? @ -No Was there de-escalation of care discussed even if they declined (Discuss DNR or withdrawal of care, Hospice)? DNR status @ -No What co-morbidities impacted this encounter? (DM, HTN, Smoking, COPD, CAD, Cancer, CVA, ARF, Chemo, Hep., AIDS, mental health diagnosis, sleep apnea, morbid obesity)? @ -None Was patient admitted / discharged? Hospital course, mention meds given and route, prescriptions, significant lab abnormalities, going to OR and other pertinent info. @ -Discharged patient's labs, CT is unremarkable. This seems to be muscular in nature. Patient will be discharged in stable condition return parameters were discussed patient advised to follow-up for Phenergan return for worsening changes symptoms. Undiagnosed new problem with uncertain prognosis? @ -No Drug Therapy requiring intensive monitoring for toxicity (Heparin, Nitro, Insulin, Cardizem)? @ -No Were any procedures done? @ -No Diagnosis/symptom? @ -Abdominal pain Acute, or Chronic, or Acute on Chronic? @ -Acute Uncomplicated (without systemic symptoms) or Complicated (systemic symptoms)? @ -Uncomplicated Side effects of treatment? @ -No Exacerbation, Progression, or Severe Exacerbation? @ -No Poses a threat to life or bodily function? How? (Chest pain, USA, MA, pneumonia, PE, COPD, DKA, ARF, appy, cholecystitis, CVA, Diverticulitis, Homicidal, Suicidal, threat to staff... and all critical care pts) @ -No - Lab Data Result diagrams: 09/15/22 09:03 09/15/22 09:03 Lab Results 09/15/22 09/15/22 09/15/22 Range/Units 09:03 09:03 09:03 WBC 7.2 (3.8-10.6) k/uL RBC 5.16 (4.30-5.90) m/uL Hgb 16.2 (13.0-17.5) gm/dL Hct 43.9 (39.0-53.0) % MCV 85.2 (80.0-100.0) fL MCH 31.3 (25.0-35.0) pg MCHC 36.8 (31.0-37.0) g/dL RDW 13.4 (11.5-15.5) % Plt Count 257 (150-450) k/uL MPV 7.7 Neutrophils % 72 % Lymphocytes % 20 % Monocytes % 4 % Eosinophils % 2 % Basophils % 1 % Neutrophils # 5.2 (1.3-7.7) k/uL Lymphocytes # 1.4 (1.0-4.8) k/uL Monocytes # 0.3 (0-1.0) k/uL Eosinophils # 0.1 (0-0.7) k/uL Basophils # 0.0 (0-0.2) k/uL Hyperchromasia Moderate Sodium 141 (137-145) mmol/L Potassium 4.2 (3.5-5.1) mmol/L Chloride 104 (98-107) mmol/L Carbon Dioxide 26 (22-30) mmol/L Anion Gap 11 mmol/L BUN 15 (9-20) mg/dL Creatinine 0.85 (0.66-1.25) mg/dL Est GFR (CKD-EPI)AfAm >90 (>60 ml/min/1.73 sqM) Est GFR (CKD-EPI)NonAf >90 (>60 ml/min/1.73 sqM) Glucose 95 (74-99) mg/dL Plasma Lactic Acid [place] (0.7-2.0) mmol/L Calcium 9.4 (8.4-10.2) mg/dL Total Bilirubin 1.0 (0.2-1.3) mg/dL AST 41 (17-59) U/L ALT 48 (4-49) U/L Alkaline Phosphatase 71 (38-126) U/L Total Protein 7.3 (6.3-8.2) g/dL Albumin 4.5 (3.5-5.0) g/dL Lipase 80 (23-300) U/L Urine Color Light Yellow Urine Appearance Clear (Clear) Urine pH 7.0 (5.0-8.0) Ur Specific [place] 1.037 H (1.001-1.035) Urine Protein Negative (Negative) Urine Glucose (UA) Negative (Negative) Urine Ketones Negative (Negative) Urine Blood Negative (Negative) Urine Nitrite Negative (Negative) Urine Bilirubin Negative (Negative) Urine Urobilinogen <2.0 (<2.0) mg/dL Ur Leukocyte Esterase Negative (Negative) 09/15/22 Range/Units 09:03 WBC (3.8-10.6) k/uL RBC (4.30-5.90) m/uL Hgb (13.0-17.5) gm/dL Hct (39.0-53.0) % MCV (80.0-100.0) fL MCH (25.0-35.0) pg MCHC (31.0-37.0) g/dL RDW (11.5-15.5) % Plt Count (150-450) k/uL MPV Neutrophils % % Lymphocytes % % Monocytes % % Eosinophils % % Basophils % % Neutrophils # (1.3-7.7) k/uL Lymphocytes # (1.0-4.8) k/uL Monocytes # (0-1.0) k/uL Eosinophils # (0-0.7) k/uL Basophils # (0-0.2) k/uL Hyperchromasia Sodium (137-145) mmol/L Potassium (3.5-5.1) mmol/L Chloride (98-107) mmol/L Carbon Dioxide (22-30) mmol/L Anion Gap mmol/L BUN (9-20) mg/dL Creatinine (0.66-1.25) mg/dL Est GFR (CKD-EPI)AfAm (>60 ml/min/1.73 sqM) Est GFR (CKD-EPI)NonAf (>60 ml/min/1.73 sqM) Glucose (74-99) mg/dL Plasma Lactic Acid [place] 1.8 (0.7-2.0) mmol/L Calcium (8.4-10.2) mg/dL Total Bilirubin (0.2-1.3) mg/dL AST (17-59) U/L ALT (4-49) U/L Alkaline Phosphatase (38-126) U/L Total Protein (6.3-8.2) g/dL Albumin (3.5-5.0) g/dL Lipase (23-300) U/L Urine Color Urine Appearance (Clear) Urine pH (5.0-8.0) Ur Specific [place] (1.001-1.035) Urine Protein (Negative) Urine Glucose (UA) (Negative) Urine Ketones (Negative) Urine Blood (Negative) Urine Nitrite (Negative) Urine Bilirubin (Negative) Urine Urobilinogen (<2.0) mg/dL Ur Leukocyte Esterase (Negative) Disposition Clinical Impression: Abdominal pain Disposition: HOME SELF-CARE Condition: Stable Instructions (If sedation given, give patient instructions): Abdominal Pain (ED) Additional Instructions: Please return to the Emergency Department if symptoms worsen or any other conc erns. Is patient prescribed a controlled substance at d/c from ED?: No Referrals: Cyndy Tarango DO [Primary Care Provider] - 1-2 days Time of Disposition: 10:11
[2022-09-15 10:28] VITALS: BP 128/79; PULSE 72; RESP 18
== END 2022-09-15 10:28 | disposition home or self-care (01) ==
LOC: EC 08:21
DX: R10.9 Unspecified abdominal pain (principal); K21.9 Gastro-esophageal reflux disease without esophagitis; Z79.899 Other long term (current) drug therapy
CPT/HCPCS: 36415; 80053; 83605; 83690; 85025; 81003; 74177; 99284; 96360; Q9967

== ENCOUNTER 2022-09-22 02:07 | Emergency (ER) | payer OTHER ==
[2022-09-22 02:15] VITALS: BP 133/87; PULSE 83; RESP 16; TEMP 97.2
--- NOTE | 2022-09-22 02:21 | ED ---
Chest Pain HPI - General Chief Complaint: Chest Pain Stated Complaint: chest pain Time Seen by Provider: 09/22/22 02:11 Source: patient, EMS Mode of arrival: EMS Limitations: no limitations - History of Present Illness Initial Comments: This patient is a 37-year-old man who presents to have evaluation of chest pain. Patient states he was at work proximally one hour ago when it developed. He states that it was in the upper substernal area. He was also noting some left arm tingling that had come on later. The patient describes the pain as a squeez ing feeling. He has not noted any relieving symptoms. He states it is made a little worse when he tried to drink something felt like it was wheezing more. He has not noted associated symptoms, no diaphoresis, dyspnea, palpitations or syncope. MD Complaint: chest pain Onset/Timin -: hour(s) Onset: during rest, other (While at work) Pain Location: substernal Pain Radiation: other (See above) Severity: moderate Quality: tightness Consistency: now resolved Improves With: nothing Worsens With: other (Drinking) Treatments Prior to Arrival: aspirin, oxygen - Related Data Home Medications Medication Instructions Recorded Confirmed Famotidine [Pepcid] 10 mg PO DAILY 09/15/22 09/15/22 Allergies Allergy/AdvReac Type Severity Reaction Status Date / Time No Known Allergies Allergy Verified 09/15/22 09:52 Review of Systems ROS Statement: Those systems with pertinent positive or pertinent negative responses have been documented in the HPI. ROS Other: All systems not noted in ROS Statement are negative. Constitutional: Denies: fever, chills, weakness Respiratory: Denies: cough, dyspnea Cardiovascular: Reports: as per HPI, chest pain. Denies: palpitations, orthopnea, edema, syncope Gastrointestinal: Denies: abdominal pain, nausea, vomiting, diarrhea Genitourinary: Denies: dysuria, hematuria Musculoskeletal: Denies: back pain Skin: Denies: rash Neurological: Denies: headache, weakness, numbness EKG Findings - EKG Results: EKG: interpreted by TAYE CHILEL, sinus rhythm (Rate 79 bpm), normal axis, normal QRS, normal ST/T, no acute changes Past Medical History Past Medical History: Seizure Disorder History of Any Multi-Drug Resistant Organisms: None Reported Past Surgical History: No Surgical Hx Reported Additional Past Surgical History / Comment(s): septoplasty, voicebox surgery Past Psychological History: No Psychological Hx Reported Smoking Status: Never smoker Past Alcohol Use History: Occasional Past Drug Use History: Marijuana General Exam Limitations: no limitations General appearance: alert, in no apparent distress Head exam: Present: atraumatic, normocephalic Eye exam: Present: normal appearance. Absent: scleral icterus, conjunctival injection Neck exam: Present: normal inspection Respiratory exam: Present: normal lung sounds bilaterally. Absent: respiratory distress, wheezes, rales, rhonchi, stridor, chest wall tenderness, accessory muscle use, decreased breath sounds Cardiovascular Exam: Present: regular rate, normal rhythm, normal heart sounds. Absent: systolic murmur, diastolic murmur, rubs, gallop GI/Abdominal exam: Present: soft. Absent: distended, tenderness, guarding, rebound, rigid, mass Extremities exam: Present: normal inspection, normal capillary refill. Absent: pedal edema, calf tenderness Back exam: Present: normal inspection. Absent: CVA tenderness (R), CVA tenderness (L) Neurological exam: Present: alert Skin exam: Present: warm, dry, intact, normal color. Absent: rash Course Vital Signs 09/22/22 02:10 Temperature 97.2 F L Pulse Rate 83 Respiratory 16 Rate Blood Pressure 133/87 O2 Sat by Pulse 97 Oximetry Chest Pain [facility] - MDM The patient had chest x-ray which I interpreted as not showing any acute infiltrate, pneumothorax, or congestive heart failure, normal. This patient is a 37-year-old man who had chest pain episode at work tonight, also a strange feeling when swallowing. The patient's physical and workup are unremarkable. He was subsequently tolerating oral intake. The patient had a episode of chest pain proximally 5 months ago and had workup and was negative at that time as well though he had the impression that one of the heart enzymes was off, reviewing records reveals that the heart enzymes were normal. The patient will have follow-up with cardiology. We discussed appropriate further care and follow-up as well as return parameters. Was pt. sent in by a medical professional or institution (, PA, DIRECT MAIL MARKETER, urgent care, hospital, or shelter...) When possible be specific @ -[No] Did you speak to anyone other than the patient for history (EMS, parent, family, police, friend...)? What history was obtained from this source @ -[EMS Did you review nursing and triage notes (agree or disagree)? Why? @ -[I reviewed and agree with nursing and triage notes, except please note that the patient did not have abnormal troponin as indicated the nursing notes] Were old charts reviewed (outside hosp., previous admission, EMS record, old EKG, old radiological studies, urgent care reports/EKG's, shelter records)? Report findings @ -[ old charts were reviewed] Differential Diagnosis (chest pain, altered mental status, abdominal pain women, abdominal pain men, vaginal bleeding, weakness, fever, dyspnea, syncope, headache, dizziness, GI bleed, back pain, seizure, CVA, palpatations, mental health, musculoskeletal)? @ -[Differential Chest Pain: Stable Angina, Unstable Angina, STEMI, NSTEMI Aortic Dissection, Pneumothorax, Musculoskeletal, Esophageal Spasm GERD, Cholecystitis, Pancreatitis, Zoster, this is not meant to be an all-inclusive list. EKG interpreted by me (3pts min.). @ -[As above] X-rays interpreted by me (1pt min.). @ -[as above CT interpreted by me (1pt min.). @ -[None done] U/S interpreted by me (1pt. min.). @ -[None done] What testing was considered but not performed or refused? (CT, X-rays, U/S, labs)? Why? @ -[None] What meds were considered but not given or refused? Why? @ -[None] Did you discuss the management of the patient with other professionals (professionals i.e. , PA, DIRECT MAIL MARKETER, lab, RT, psych nurse, social work specialist, tire mold engraver, teacher, senior credit officer, case managers)? Give summary @ -[No] Was smoking cessation discussed for >3mins.? @ -[No] Was critical care preformed (if so, how long)? @ -[No] Were there social determinants of health that impacted care today? How? (Homelessness, low income, unemployed, alcoholism, drug addiction, transportation, low edu. Level, literacy, decrease access to med. care, alf, rehab)? @ -[No] Was there de-escalation of care discussed even if they declined (Discuss DNR or withdrawal of care, Hospice)? DNR status @ -[No] What co-morbidities impacted this encounter? (DM, HTN, Smoking, COPD, CAD, Cancer, CVA, ARF, Chemo, Hep., AIDS, mental health diagnosis, sleep apnea, morbid obesity)? @ -[None] Was patient admitted / discharged? Hospital course, mention meds given and route, prescriptions, significant lab abnormalities, going to OR and other pertinent info. @ -[Discharge Undiagnosed new problem with uncertain prognosis? @ -[No] Drug Therapy requiring intensive monitoring for toxicity (Heparin, Nitro, Insulin, Cardizem)? @ -[No] Were any procedures done? @ -[No] Diagnosis/symptom? @ -[Acute chest pain, uncomplicated Acute, or Chronic, or Acute on Chronic? @ -[default] Uncomplicated (without systemic symptoms) or Complicated (systemic symptoms)? @ -[default] Side effects of treatment? @ -[No] Exacerbation, Progression, or Severe Exacerbation? @ -[No] Poses a threat to life or bodily function? How? (Chest pain, [place], [place], pneumonia, PE, COPD, DKA, ARF, appy, cholecystitis, CVA, Diverticulitis, Homicidal, Suicidal, threat to staff... and all critical care pts) @ -[No] Disposition Clinical Impression: Chest pain Disposition: HOME SELF-CARE Condition: Good Instructions (If sedation given, give patient instructions): Chest Pain (ED) Is patient prescribed a controlled substance at d/c from ED?: No Referrals: Cyndy Tarango DO [Primary Care Provider] - 1-2 days
[2022-09-22] MEDS ORDERED: NITROGLYCERIN SL TABS 0.4 MG TAB SUBLINGUAL STA (02:31)
[2022-09-22] MEDS ORDERED: ASPIRIN 81 MG PO STA (02:31)
[2022-09-22 02:48] LABS: Basophils # (A) 0.1 k/uL (0-0.2); Basophils % (A) 1 %; Eosinophils # (A) 0.1 k/uL (0-0.7); Eosinophils % (A) 3 %; HCT 43.9 % (39.0-53.0); HGB 14.9 gm/dL (13.0-17.5); Hyperchromasia Slight; Lymphocytes # (A) 1.7 k/uL (1.0-4.8); Lymphocytes % (A) 31 %; MCH 30.4 pg (25.0-35.0); MCV 89.5 fL (80.0-100.0); Mean Platelet Volume 7.9; Monocytes # (A) 0.3 k/uL (0-1.0); Monocytes % (A) 5 %; Neutrophils # (A) 3.2 k/uL (1.3-7.7); Neutrophils % (A) 58 %; Platelet Count 259 k/uL (150-450); RDW 13.3 % (11.5-15.5); WBC 5.6 k/uL (3.8-10.6)
[2022-09-22 03:03] LABS: ALT 41 U/L (4-49); AST 36 U/L (17-59); African American GFR (CKD) >90 (>60 ml/min/1.73 sqM); Albumin 4.1 g/dL (3.5-5.0); Alkaline Phosphatase 68 U/L (38-126); Anion Gap 9 mmol/L; Blood Urea Nitrogen 13 mg/dL (9-20); Calcium 8.3 mg/dL (8.4-10.2); Carbon Dioxide 23 mmol/L (22-30); Chloride 107 mmol/L (98-107); Glucose 117 mg/dL (74-99); Magnesium 1.8 mg/dL (1.6-2.3); Non-African American GFR(CKD) >90 (>60 ml/min/1.73 sqM); Sodium 139 mmol/L (137-145); Total Bilirubin 0.6 mg/dL (0.2-1.3); Total Protein 6.7 g/dL (6.3-8.2)
[2022-09-22 03:11] LABS: Partial Thromboplastin Time 25.6 sec (22.0-30.0); Prothrombin Time 10.3 sec (9.0-12.0)
--- NOTE | 2022-09-22 03:23 | XR ---
EXAM: XR Chest, 2 Views CLINICAL HISTORY: ITS.REASON XR Reason: Chest Pain TECHNIQUE: Frontal and lateral views of the chest. COMPARISON: Chest radiograph on 04/17/2022 FINDINGS: Hardware: None. Lungs/pleura: Mild elevation of the right hemidiaphragm. No focal consolidation. No pleural effusion or pneumothorax. Heart/mediastinum: Normal. No cardiomegaly. Soft tissues: Unremarkable. Bones: No acute fracture. Upper abdomen: Normal. IMPRESSION: No acute disease identified.
[2022-09-22] MEDS ORDERED: MAG HYDROX/AL HYDROX/SIMETH 30 ML, HYOSCYAMINE ELIXIR 10 ML, LIDOCAINE VISCOUS 2% 10 ML PO STA ×3 (04:19)
== END 2022-09-22 07:05 | disposition home or self-care (01) ==
LOC: EC 02:07
DX: R07.89 Other chest pain (principal); F12.90 Cannabis use, unspecified, uncomplicated
CPT/HCPCS: 36415; 71046; 80053; 83735; 84484; 85025; 85610; 85730; 93005; 99285

== ENCOUNTER → 2022-11-04 | Outpatient (CLI) | payer OTHER ==
--- NOTE | 2022-11-04 10:52 | CA ---
Exercise Stress Test Report Name: Frank Monroe Exam Date: 11/04/2022 09:24 Exam Location: [place] Stress Ht (in): 70 Wt (lb): 265 BSA: 2.35 Ordering Phys: Boston Porras MD Referring Phys: Estela Shirley Technologist: Alan Sánchez Age: 37 Gender: M : 1985 Procedure CPT: Indications: I20.9 R06.02 ICD-10 Codes: Patient History: Medications: Meds past 24 hrs: Pretest Chest Pain: STRESS TEST Black Protocol Exercise Duration (min:sec): 06:[address] Depressions (mm): Angina Score: Mata Score: Resting HR (bpm): 89 Peak HR (bpm): 181 Resting BP (mmHg): 131 / 90 Peak BP (mmHg): / 89 MPHR: 183 Target HR: 156 % MPHR: 99 METS: 8.6 Total Dose: Peak Dose: Atropine: Double Product: BP Response: Stress Termination: Reached target heart rate Stress Symptoms: VERY SHORT OF BREATH Stress Summary: ECG ANALYSIS Resting ECG: Stress ECG: CONCLUSIONS Excellent exercise tolerance Normal EKG in response to exercise Dr. Christiano Omer MD (Electronically Signed) Final Date: 04 November 2022 10:51
== END | disposition home or self-care (01) ==
LOC: RADNMMAIN 08:58
PROVIDERS: ATTEND Family Medicine
DX: R06.02 Shortness of breath (principal); I20.9 Angina pectoris, unspecified
CPT/HCPCS: 93017

== ENCOUNTER 2022-11-10 08:53 | Day surgery (SDC) | payer OTHER ==
[2022-11-06 08:30] VITALS: BMI 38.0
[~2022-11-10 08:53] MED LIST: LIDOCAINE 1% (10MG/ML) FOR IV START INTRADERMA PRN
[2022-11-10 09:20] VITALS: TEMP 98
[2022-11-10] MEDS: LACTATED RINGERS 1,000 ML IV SCH ×2 (09:27→09:54)
[2022-11-10] MEDS ORDERED: PROPOFOL 10 MG/ML 20 ML VIAL IV ONE (10:00)
[2022-11-10] MEDS ORDERED: LIDOCAINE 2% INJ 20 MG/ML (2 ML VIAL) ONE (10:00)
--- NOTE | 2022-11-10 10:09 | P.PCN ---
Date of Procedure: 11/10/22 Procedure(s) Performed: BRIEF HISTORY: Patient is a 37-year-old, pleasant, white male is a part of evaluation of chronic epigastric pain for the last several months duration. He is currently on omeprazole 40 mg daily as well as Pepcid with no relief in his symptoms.. PROCEDURE PERFORMED: Esophagogastroduodenoscopy with biopsy. PREOPERATIVE DIAGNOSIS: Chronic epigastric pain of several months duration. IV sedation per anesthesia. PROCEDURE: After informed consent was obtained, the patient was brought into the endoscopy unit. IV sedation was administered by Anesthesia under continuous monitoring. Initially the Olympus GIF-140 video endoscope was inserted into the mouth. Esophagus intubated without any difficulty. It was gradually advanced into the stomach and duodenum and carefully examined. The bulb and the second part of the duodenum appeared normal. Biopsies were done from the duodenum to rule out celiac disease The scope at this time was withdrawn to the stomach, adequately insufflated with air, and upon careful examination, mucosa of the antrum, had mild gastritis and biopsies were done from this area. Mucosa of the body, cardia and the fundus appeared normal. Small hiatal hernia noted. The scope was then withdrawn into the esophagus. The GE junction was located at 37 cm from the incisors. The esophagus appeared normal. There were no erosions or ulcerations seen, biopsies were done from the distal esophagus and the patient tolerated the procedure well. IMPRESSION: 1. Small hiatal hernia but no evidence of esophagitis or peptic ulcer disease. 2. Mild antral gastritis. RECOMMENDATIONS: The findings of this examination were discussed with the patient as well his family. He was advised to follow with the biopsy results.. Continue with omeprazole 40 mg daily and follow antireflux measures.
[2022-11-10 10:17] VITALS: RESP 15
[2022-11-10 10:36] VITALS: BP 132/88; PULSE 81
== END 2022-11-10 11:10 | disposition home or self-care (01) ==
LOC: ORWHC2ENDO 08:53
PROVIDERS: ATTEND Internal Medicine Gastroenterology
DX: K29.50 Unspecified chronic gastritis without bleeding (principal); G89.29 Other chronic pain; K20.0 Eosinophilic esophagitis; K44.9 Diaphragmatic hernia without obstruction or gangrene; G35 Multiple sclerosis; F10.90 Alcohol use, unspecified, uncomplicated; Z86.73 Personal history of transient ischemic attack (TIA), and cerebral infarction without residual deficits; Z79.899 Other long term (current) drug therapy; Z88.8 Allergy status to other drugs, medicaments and biological substances
CPT/HCPCS: 88305; 43239; J2704; J2001

== ENCOUNTER 2022-12-24 23:57 | Emergency (ER) | payer OTHER ==
[2022-12-25 00:01] VITALS: TEMP 97.3
[2022-12-25] MEDS ORDERED: PROPARACAINE 0.5% OPHTH DROPS 15 ML BTL BOTH EYES STA (00:18)
[2022-12-25] MEDS ORDERED: CIPROFLOXACIN 0.3% OPHTH SOLN 5 ML BTL BOTH EYES STA (00:18)
[2022-12-25] MEDS ORDERED: FLUORESCEIN STRIPS 1 MG STRIP BOTH EYES ONE (00:18)
[2022-12-25] MEDS ORDERED: KETOROLAC 0.5% OPHTH DROPS 5 ML BTL BOTH EYES SCH (00:30)
--- NOTE | 2022-12-25 01:03 | ED ---
Eye Problem HPI - General Chief complaint: Eye Problems Stated complaint: Eyes Burning Time Seen by Provider: 12/25/22 00:05 Source: patient, RN notes reviewed Mode of arrival: ambulatory Limitations: no limitations - History of Present Illness Initial comments: This is a 37-year-old male who presents to the emergency department for concerns of his eyes burning. 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 He went to bed, and was woken up by his getting ready for work. He went to rub his eyes, and states that shortly after that developed severe burning to both eyes. He is having difficulty keeping his eyes open due to the pain. Unsure if there was anything on his hands at the time. He tried rinsing his eyes but was not able to get much water in them, as it was difficult to keep his eyes open. Denies any fevers, chills, sore throat, cough, dyspnea, chest pain, palpitations, abdominal pain, nausea, vomiting, diarrhea, back pain, or headaches. MD chief complaint: eye pain - Related Data Home Medications Medication Instructions Recorded Confirmed Famotidine [Pepcid] 10 mg PO DAILY 11/06/22 11/10/22 Fexofenadine/Pseudoephedrine 1 tab PO DAILY 11/06/22 11/10/22 [Yael-D 24 Hour Tablet] Keppra (Unknown Dose) 1 dose PO DAILY 11/06/22 11/10/22 Omeprazole 40 mg PO DAILY 11/06/22 11/10/22 lamoTRIgine [LaMICtal] 100 mg PO BID 11/06/22 11/10/22 Allergies Allergy/AdvReac Type Severity Reaction Status Date / Time nickel Allergy Unknown skin rash Verified 11/10/22 09:09 Review of Systems ROS Statement: Those systems with pertinent positive or pertinent negative responses have been documented in the HPI. ROS Other: All systems not noted in ROS Statement are negative. Past Medical History Past Medical History: Hearing Disorder / Deafness, Osteoarthritis (OA), Seizure Disorder Additional Past Medical History / Comment(s): last seizure 3 weeks ago, states having stomach pain., environmental allergies., frequent diarrhea., Deaf left ear History of Any Multi-Drug Resistant Organisms: None Reported Past Surgical History: No Surgical Hx Reported Additional Past Surgical History / Comment(s): septoplasty, cyst on voicebox removed Past Anesthesia/Blood Transfusion Reactions: No Reported Reaction Past Psychological History: Anxiety Smoking Status: Never smoker Past Alcohol Use History: Occasional Past Drug Use History: Marijuana - Past Family History Mother Family Medical History: No Reported History General Exam Limitations: no limitations General appearance: alert, in no apparent distress Head exam: Present: atraumatic, normocephalic, normal inspection Eye exam: Present: other (Bilateral conjunctival injection) Expanded Visual acuity (R) = 20/: 40 Visual acuity (L) = 20/: 40 Respiratory exam: Present: normal lung sounds bilaterally. Absent: respiratory distress, wheezes, rales, rhonchi, stridor Cardiovascular Exam: Present: regular rate, normal rhythm, normal heart sounds. Absent: systolic murmur, diastolic murmur, rubs, gallop, clicks Neurological exam: Present: alert, oriented X3, CN II-XII intact Psychiatric exam: Present: normal affect, normal mood Skin exam: Present: warm, dry, intact, normal color. Absent: rash Course Vital Signs 12/24/22 12/25/22 23:58 01:25 Temperature 97.3 F L Pulse Rate 78 64 Respiratory 16 20 Rate Blood Pressure 147/95 123/70 O2 Sat by Pulse 98 94 L Oximetry Medical Decision Making - Medical Decision Making This is a 37-year-old male who presents to the emergency department for bilateral eye pain. Was pt. sent in by a medical professional or institution? @ -No Did you speak to anyone other than the patient for history? @ -No Did you review nursing and triage notes? @ -Yes, and I agree, it is accurate with regards to the patient's symptoms. Were old charts reviewed? @ -No Differential Diagnosis? @ -Differential Eye Pain: Conjuncitivitis (viral, bacterial, allergic), corneal abrasion, foreign body, iritis, uveitis, keratitis, acute angle closure glaucoma, this is not meant to be an all-inclusive list. EKG interpreted by me (3pts min.)? @ -Not obtained X-rays interpreted by me (1pt min.)? @ -Not obtained CT interpreted by me (1pt min.)? @ -Not obtained U/S interpreted by me (1pt. min.)? @ -Not obtained What testing was considered but not performed? (CT, X-rays, U/S, labs)? Why? @ -None What meds were considered but not given? Why? @ -None Did you discuss the management of the patient with other professionals? @ -No Did you reconcile home meds? @ -No Was smoking cessation discussed for >3mins.? @ -No Was critical care preformed (if so, how long)? @ -No Were there social determinants of health that impacted care today? How? (Homelessness, low income, unemployed, alcoholism, drug addiction, transportation, low edu. Level, literacy, decrease access to med. care, [facility], rehab)? @ -No Was there de-escalation of care discussed even if they declined? (Discuss DNR or withdrawal of care, Hospice)? @ -No What co-morbidities impacted this encounter? (DM, HTN, Smoking, COPD, CAD, Cancer, CVA, Hep., AIDS, mental health diagnosis, sleep apnea, morbid obesity)? @ -None Was patient admitted / discharged? @ -Discharged. Michael lens was applied to both eyes and they were thoroughly irrigated. Fluorescein staining did not identify any evidence of a corneal abrasion. Patient did feel much better following the irrigation of both eyes. Patient may have had chemicals on his hands that transferred to his eyes after rubbing them. He was given a bottle of ciprofloxacin eyedrops in the emergency department. He was also given a bottle of Toradol eyedrops for discomfort. Dosing instructions for both medications reviewed. Information for ophthalmology follow-up provided. He is instructed to contact them for a follow-up appointment. Undiagnosed new problem with uncertain prognosis? @ -None Drug Therapy requiring intensive monitoring for toxicity (Heparin, Nitro, Insulin, Cardizem)? @ -None Were any procedures done? @ -None Diagnosis/symptom? @ -Bilateral conjunctivitis Acute, or Chronic, or Acute on Chronic? @ -Acute Uncomplicated (without systemic symptoms) or Complicated (systemic symptoms)? @ -Uncomplicated Side effects of treatment? @ -None Exacerbation, Progression, or Severe Exacerbation] @ -Not applicable Poses a threat to life or bodily function? @ -No Return precautions reviewed in depth, the patient is instructed to return to the emergency department with any new, worsening, or concerning symptoms. Patient verbalized understanding. This case was discussed in detail with the attending ED physician, Dr. Calhoun. Presentation, findings, and treatment plan discussed in detail as well. Disposition Clinical Impression: Conjunctivitis of both eyes Disposition: HOME SELF-CARE Instructions (If sedation given, give patient instructions): Chemical Eye Patricia (ED), Conjunctivitis (ED) Additional Instructions: Return to the emergency department with any new, worsening, or concerning symptoms. Use the ciprofloxacin eyedrops as 2 drops to both eyes 4 times daily for 5 days. You can use the ketorolac eyedrops as one drop to both eyes up to every 6 hours for 5 days as well to help with discomfort. Contact ophthalmology as listed below for a follow-up appointment regarding the eyes. Follow up with your primary care provider in 1-2 days. Is patient prescribed a controlled substance at d/c from ED?: No Referrals: Cyndy Tarango DO [Primary Care Provider] - 1-2 days Phillip Alcaraz MD [STAFF PHYSICIAN] - 1-2 days
[2022-12-25 01:26] VITALS: BP 123/70; PULSE 64; RESP 20
== END 2022-12-25 01:26 | disposition home or self-care (01) ==
LOC: EC 23:57
DX: H10.9 Unspecified conjunctivitis (principal); F12.90 Cannabis use, unspecified, uncomplicated; Z86.59 Personal history of other mental and behavioral disorders; Z88.6 Allergy status to analgesic agent
CPT/HCPCS: 99283